=== PATIENT | male | born 1955 | race Caucasian/White ===

== ENCOUNTER 2020-01-09 11:33 | Outpatient (CLI) | payer MEDICARE, OTHER, SELFPAY ==
--- NOTE | ~2020-01-09 | XR_ITS ---
XR knee RT min 4V 01/09/2020 12:08 Indication: Right knee pain Procedure: 4 views right knee Comparison: 12/15/2011 Findings: There is mild patellofemoral compartment osteoarthritis. No fracture, subluxation or disloc ation. No significant joint effusion. No significant soft tissue abnormality. Impression: 1: Mild osteoarthritis of the patellofemoral joint. Reviewed, dictated and finalized at location A. Impression: 1: Mild osteoarthritis of the patellofemoral joint.
== END 2020-01-09 11:34 | disposition home or self-care (01) ==
LOC: CHSIMG 11:40
PROVIDERS: PCP Internal Medicine; Visit Provider Internal Medicine
DX: M25.561 Pain in right knee (principal)
CPT/HCPCS: 73564

== ENCOUNTER 2021-01-22 08:10 | Outpatient (CLI) | payer MEDICARE, OTHER, SELFPAY ==
--- NOTE | 2021-01-22 09:33 | ECG_ITS ---
Measurements Intervals [place] Rate: 62 P: 25 MD: 201 QRS: 56 QRSD: 100 T: 15 QT: 420 QTc: 427 Interpretive Statements SINUS RHYTHM BASELINE ARTIFACT- I, II, AVR, AVL, AVF NORMAL ECG Electronically Signed On 01-22-2021 9:59:54 CDT by Juan C Han D.O.
[2021-01-22 09:59] LABS: Basophils Absolute Auto 0.1 K/mm3 (0.0-0.1); Basophils Percent Auto 1.2 % (0.2-1.2); Eosinophils Absolute Auto 0.1 K/mm3 (0-0.3); Eosinophils Percent Auto 1.5 % (0-4.4); Hematocrit 44.9 % (42.0-52.0); Hemoglobin 15.1 g/dL (14.0-18.0); Immature Granulocyte Absolute 0.02 K/mm3 (0.00-0.031); Immature Granulocyte Percent A 0.3 % (0-0.5); Lymphocytes Absolute Auto 1.71 K/mm3 (0.9-3.2); Lymphocytes Percent Auto 28.9 % (18.3-44.2); Mean Corpuscular HGB Conc 33.6 g/dl (32-36); Mean Corpuscular Volume 89.3 fl (80-100); Mean Platelet Volume 9.3 fl (7.4-10.4); Monocytes Absolute Auto 0.5 K/mm3 (0.1-0.6); Monocytes Percent Auto 9.1 % (2.6-8.5); Neutrophils Absolute Auto 3.5 K/mm3 (1.3-6.7); Platelet Count Result 215 k/mm3 (150-375); Red Blood Count 5.03 M/mm3 (4.6-6.20); Red Cell Distribution Width 13.1 % (11.5-14.5); White Blood Count 5.9 K/mm3 (4.5-10.0)
[2021-01-22 10:07] LABS: Urine Cotinine NEGATIVE
[2021-01-22 10:10] LABS: Albumin Level 4.2 g/dL (3.5-5.1); Anion Gap 8 mmol/L (8-16); Blood Urea Nitrogen 18 mg/dL (9-20); Calcium 9.7 mg/dL (8.4-10.2); Carbon Dioxide 30 mmol/L (22-30); Chloride 104 mmol/L (98-107); Estimated Glomerular Filt Rate > 60; Glucose 105 mg/dL (75-110); Potassium 4.2 mmol/L (3.4-5.0); Sodium 142 mmol/L (137-145)
[2021-01-23 04:28] LABS: Hemoglobin A1C 5.6 % (<5.7)
== END 2021-01-22 08:11 | disposition home or self-care (01) ==
LOC: ANHSURGERY 08:13
PROVIDERS: PCP Internal Medicine; Visit Provider Orthopaedic Surgery
DX: Z01.818 Encounter for other preprocedural examination (principal); M17.11 Unilateral primary osteoarthritis, right knee; Z51.81 Encounter for therapeutic drug level monitoring; Z79.899 Other long term (current) drug therapy
CPT/HCPCS: 80048; 80307; 82040; 83036; 85025; 87070; 87077; 87186; 93005

== ENCOUNTER 2021-02-05 00:43 | Day surgery (SDC) | payer MEDICARE, OTHER, SELFPAY ==
[2021-01-22 08:19] VITALS: BMI 36.4
[2021-01-22 09:10] VITALS: BP 167/85; PULSE 71; RESP 16; TEMP 37; O2SAT 99
[2021-02-05] VITALS (17 sets, daily range): BP systolic 112–150; BP diastolic 59–80; PULSE 76–110; RESP 14–18; TEMP 35.9–37.1; O2SAT 94–100
--- NOTE | ~2021-02-05 | XR_ITS ---
EXAMINATION: XR knee RT 2V DATE: 02/05/2021 16:05 INDICATION: Right knee arthroplasty. Postop. TECHNIQUE: 2 views of right knee were obtained. COMPARISON: Right knee radiographs 01/09/2020 FINDINGS: There is a total right knee arthroplasty in near-anatomic alignment with patellar resurfaci ng. No fracture. There is gas in the knee joint and soft tissues, consistent with recent surgery. IMPRESSION: 1. Total right knee arthroplasty in near-anatomic alignment. Reviewed, dictated and finalized at location A.
--- NOTE | 2021-02-05 08:50 | PM.IMHP ---
H&P: HPI History of Present Illness Date/Time: 02/05/21 08:50 65-year-old male patient of who presents today for right total knee arthroplasty. He has been having pain in this knee for years. He has been on diclofenac which is giving him very little improvement of his symptoms. He has severe medial compartment as well as patellofemoral arthritis in his knee. He is miserable on a daily basis. Pain is affecting his daily lifestyle. He feels this point is very proceed with total knee arthroplasty rather continue nonsurgical treatment. <BETTE Farah - Last Filed: 02/05/21 08:54> Chief Complaint: right knee DJD <BETTE Farah - Last Filed: 02/05/21 08:54> Review of Systems Review of Systems: All systems reviewed & are unremarkable except as noted in HPI and below <BETTE Farah - Last Filed: 02/05/21 08:54> [facility] Past Medical History Medical History: Medical History (Updated 02/05/21 @ 11:47 by Richard Whitman MD) Hypertension <BETTE Farah - Last Filed: 02/05/21 08:54> Social History Social History: Social History Smoking packs per day: 3 Smoking cigarettes per day: 60.0 Years smoked: 20 Smoking pack-years: 60.00 Smoking status: Former smoker Tobacco type: cigarettes Smoking end date: 08/09/91 Additional smoking assessment comments: DENIES ANY FORM OF TOBACCO USE Living arrangements: with family Spiritual care concerns: No <BETTE Farah - Last Filed: 02/05/21 08:54> Meds Home Medications and Allergies Home medications: Home Medications Medication Instructions Recorded Confirmed Type acetaminophen [Tylenol Arthritis] 1,000 mg PO PRN PRN 01/22/21 01/22/21 History aspirin [Adult Low Dose Aspirin] 81 mg PO DAILY 01/22/21 02/05/21 History diclofenac sodium 75 mg PO BID 01/22/21 02/05/21 History garlic 2,000 mg PO DAILY 01/22/21 02/05/21 History losartan-hydrochlorothiazide 1.5 tablet PO QAM 01/22/21 02/05/21 History multivitamin,vg-wump-dbjysllr 1 tablet PO DAILY 01/22/21 01/22/21 History [Complete Multivitamin] omega-3 fatty acids [[place] 3 Fish 1,000 mg PO DAILY 01/22/21 02/05/21 History Oil] psyllium husk [Daily Fiber] 0.4 g PO DAILY 01/22/21 02/05/21 History tamsulosin 0.4 mg PO QAM 01/22/21 02/05/21 History <BETTE Farah - Last Filed: 02/05/21 08:54> Allergies/Adverse reactions: Allergies Allergy/AdvReac Type Severity Reaction Status Date / Time morphine AdvReac Unknown Nausea and Verified 02/05/21 11:03 Vomiting <BETTE Farah Last Filed: 02/05/21 08:54> Exam Narrative: Exam Narrative: 65-year-old male alert pleasant. He is 5 ft 7 to 123 lb. His BMI is 35. his right knee has moderate effusion. Range of motion is from 5-135 degrees. He has normal stability in the knee. Hip range of motion is full without discomfort. Negative Stinchfield maneuver. Normal quad strength. No edema in either lower extremity. 2+ dorsalis pedis and post tibial artery pulse in the right leg. Does state he has some slight numbness to light touch in the right lower extremity. <BETTE Farah - Last Filed: 02/05/21 08:54> Resp: Auscultation: clear to auscultation bilaterally <BETTE Farah Last Filed: 02/05/21 08:54> Cardio: Rate: regular rate <BETTE Farah Last Filed: 02/05/21 08:54> Rhythm: regular rhythm <BETTE Farah Last Filed: 02/05/21 08:54> Assessment and Plan Additional Plan 65-year-old male who has severe medial compartment arthritis and moderately severe patellofemoral arthritis in the right knee with significant symptoms. Again he is miserable on a daily basis and feels he is ready proceed with total knee arthroplasty. Surgical procedure as well as risks and complications were discussed in detail all questions were answered we will plan to proceed. He will see his primary care doctor pre-surgical
[2021-02-05] MEDS: LACTATED RINGERS 1,000 ML 30 ML IV CONT ×2 (10:30→15:54)
[2021-02-05] MEDS: TRANEXAMIC ACID 1,000MG/ISO100 1,000 MG/100 ML BAG 200 MG IVPB (10:44)
[2021-02-05] MEDS: ACETAMINOPHEN 500 MG TABLET 1000 MG PO ×3 (10:44→23:14)
--- NOTE | 2021-02-05 11:52 | P.PNAN_ITS ---
Anes - Initial Pre Proc Eval Procedure: Operation Date: 02/05/21 12:00 Proposed Procedures p Right Total Knee Arthroplasty - Dieter Harman MD Date/Time: 02/05/21 11:52 Surgeon: Dieter Harman MD Pre Op Diagnosis: severe oa, right knee Patient Data Age: 65 Gender: M Height: 1.68 m Weight: 99.1 kg Last Vital Signs Temp 98.8 F 02/05/21 11:00 Pulse 76 02/05/21 11:00 Resp 18 02/05/21 11:00 BP 150/80 H 02/05/21 11:00 Pulse Ox 98 02/05/21 11:00 Allergies Allergy/AdvReac Type Severity Reaction Status Date / Time morphine AdvReac Unknown Nausea and Verified 02/05/21 11:03 Vomiting Home Medications Medication Instructions Recorded Confirmed Type acetaminophen [Tylenol Arthritis] 1,000 mg PO PRN PRN 01/22/21 01/22/21 History aspirin [Adult Low Dose Aspirin] 81 mg PO DAILY 01/22/21 02/05/21 History diclofenac sodium 75 mg PO BID 01/22/21 02/05/21 History garlic 2,000 mg PO DAILY 01/22/21 02/05/21 History losartan-hydrochlorothiazide 1.5 tablet PO QAM 01/22/21 02/05/21 History multivitamin,[id number]-[id number] 1 tablet PO DAILY 01/22/21 01/22/21 History [Complete Multivitamin] omega-3 fatty acids [[place] 3 Fish 1,000 mg PO DAILY 01/22/21 02/05/21 History Oil] psyllium husk [Daily Fiber] 0.4 g PO DAILY 01/22/21 02/05/21 History tamsulosin 0.4 mg PO QAM 01/22/21 02/05/21 History Patient hx anesthesia problems: none Family hx anesthesia problems: none PMFSH Past Medical History Medical History (Updated 02/05/21 @ 11:47 by Richard Whitman MD) Hypertension Social History Social History Smoking packs per day: 3 Smoking cigarettes per day: 60.0 Years smoked: 20 Smoking pack-years: 60.00 Smoking status: Former smoker Tobacco type: cigarettes Smoking end date: 08/09/91 Additional smoking assessment comments: DENIES ANY FORM OF TOBACCO USE Living arrangements: with family Spiritual care concerns: No Anes - Eval Final PreProcedure Day of Procedure 02/05/21 11:52 Patient weight: obese Heart: regular rate and rhythm Airway: Mallampati scale Neurological: alert and oriented Last oral intake: >/= 8 hours ASA classification: III Emergent: no Anesthetic plan: proceed Anesthesia type and monitoring: general LMA and standard monitoring Informed Consent: The patient's anesthetic plan and its attendant risks and benefits were discussed with the patient/family/POA. Questions were solicited and answers provided to the satisfaction of the patient/family/POA.
--- NOTE | 2021-02-05 11:53 | WPDHPUPDATE1 ---
History and Physical Update Update Date/Time: 02/05/21 11:53 History and Physical has been reviewed, including an updated exam of the patient. There are NO changes in the patient's condition. Risks, benefits, and alternatives have been discussed and questions answered. Patient agrees to proceed with procedure.
[2021-02-05] MEDS: ceFAZolin 2 GM/D5W 50 ML 2 GM/50 ML BAG IVPB (12:07)
[2021-02-05] MEDS: ceFAZolin SODIUM 1 GM VIAL 3 GM IRRIGATION (12:46)
[2021-02-05] MEDS: ceFAZolin SODIUM 1 GM VIAL IV PUSH (14:37)
[2021-02-05] MEDS: TRANEXAMIC ACID 1,000 MG/10 ML AMPUL 1000 MG IV PUSH (14:40)
--- NOTE | 2021-02-05 15:41 | W.PM.PROC2 ---
Procedure Note - Detailed Date of Procedure 02/05/21 Pre-op Diagnosis severe oa, right knee Post-op Diagnosis same Procedure Performed Right total knee arthroplasty Surgeon Dieter Harman MD Return Checker Estevan Anesthesia general Indications arthritis severe, pain, failure of non operative treatment Findings same Description of Procedure patient brought to the operating room and general anesthesia was administered. He received weight based vancomycin 2 g of Ancef and 1 g of tranexamic acid IV preoperatively and the right knee prepped draped usual fashion. Limb was exsanguinated tourniquet elevated to 300 mmHg. A 7 in longitudinal midline incision was used in a vastus medialis splitting approach utilized. Infrapatellar and suprapatellar fat pads were excised the quadriceps synovectomy carried out. The patella was moderately arthritic at the the trochlea was is also. The patella was measured at 23.5 mm and was cut to 15 mm. Bone quality very good. Protector cap applied. Guide dwight was inserted on femoral canal after aspiration canal contents using the 5 degree valgus cutting bushing 9 mm of bone removed the distal femur. Next the tibial plateau was cut. We made a skim cut through the articular cartilage in both compartments. PCL was recessed meniscal remnants excised. Flexion gap was too tight to accept the 8 mm spacer block medially. Additional 2 mm of bone removed the tibial plateau at this time. After confirming alignment of the tibial cut flexion gaps were measured. The medial side measured 8 mm the lateral side measured 11mm . Whitesides line was drawn on the femur and 4? of external rotation matched Whitesides line appropriately. Posterior referencing pin holes were placed with the guide set at 4? external rotation. The 65 sizing block looked like he would notch a bit the 67.5 was applied and the femoral cuts made. The 67.5 was about a mm wider than the distal femur. We trialed and 10 mm CR insert was placed at 90? of flexion we found that it was too tight laterally in this position and there was about a mm and half to 2 mm of play medially. The knee had a fairly positive bounce. The tibia was sized to a 71 which fit line to line posterolaterally to anterior medially at the proper rotation referenced off the 2nd metatarsal ray and the medial 1/3 of the tibial tubercle in the anterior surface of the tibia. Bone quality again was excellent. We trialed again with the 10 insert and found that again there is a little bit of play medially but it was far too tight laterally. This demonstrated that the femur would benefit from being at slightly less external rotation. We applied the 65 mm vanguard cutting block after removing the pin that would go into the reference hole in the lateral femoral condyle and this allowed us to dial 2? of internal rotation into the femur approximately. Basically we internally rotated it such that it would remove about 1/2 mm more of the posterior aspect of the lateral femoral condyle. We used the threaded pin to stabilize the cutting block in this position. The cuts were then made downsizing to a 65 which fit better medial to lateral without overhang. We then trialed with the 10 insert and we had excellent balance than 90? but a little bit more anterior-posterior drawer that I would normally except. The knee came out to full extension. Negative bounce. We trialed with the 11 and in flexion this gave the appropriate stability with a mm each of medial and lateral opening at 90?. However the knee had a positive bounce test lacking couple of degrees of extension. Therefore additional 1 mm bone was removed the distal femur and the chamfer cuts revisited and on read trying with the 11 knee came out to full extension with no medial opening in full extension 1 mm at 5? of flexion and 2-3 mm of opening laterally. Excellent balance between the mediolateral compartments at 90? of flexion with gravity flexion all t
[2021-02-05] MEDS: HYDROmorphone HCL INJ (*CRX) 1 MG/ML SYR 0.25 MG IV PUSH ×8 (16:17→16:55)
[2021-02-05] MEDS: fentaNYL CITRATE INJ (*CRX) 100 MCG/2 ML VIAL 25 MCG IV PUSH ×4 (17:01→17:11)
[2021-02-05] MEDS: SODIUM CHLORIDE 0.9% IV 1,000 ML 125 ML IV CONT (17:52)
[2021-02-05] MEDS: SENNA/DOCUSATE SODIUM TABLET 2 TAB PO (17:59)
[2021-02-05] MEDS: oxyCODONE HCL (*CRX) 5 MG TAB IR PO (21:46)
[2021-02-06 03:07] VITALS: BP 131/70; PULSE 84; RESP 16; TEMP 36.8; O2SAT 98
[2021-02-06] MEDS: oxyCODONE HCL (*CRX) 5 MG TAB IR PO ×3 (03:27→13:37)
[2021-02-06] MEDS: ACETAMINOPHEN 500 MG TABLET 1000 MG PO ×2 (05:47→11:42)
[2021-02-06 05:51] LABS: Basophils Percent Auto 0.1 % (0.2-1.2); Hematocrit 35.3 % (42.0-52.0); Hemoglobin 11.8 g/dL (14.0-18.0); Immature Granulocyte Absolute 0.06 K/mm3 (0.00-0.031); Immature Granulocyte Percent A 0.5 % (0-0.5); Lymphocytes Absolute Auto 0.69 K/mm3 (0.9-3.2); Lymphocytes Percent Auto 5.3 % (18.3-44.2); Mean Corpuscular HGB Conc 33.4 g/dl (32-36); Mean Corpuscular Hemoglobin 29.8 pg (26-34); Mean Corpuscular Volume 89.1 fl (80-100); Mean Platelet Volume 9.4 fl (7.4-10.4); Monocytes Absolute Auto 0.9 K/mm3 (0.1-0.6); Monocytes Percent Auto 6.8 % (2.6-8.5); Neutrophils Absolute Auto 11.5 K/mm3 (1.3-6.7); Neutrophils Percent Auto 87.3 % (45.5-73.1); Platelet Count Result 218 k/mm3 (150-375); Red Blood Count 3.96 M/mm3 (4.6-6.20); Red Cell Distribution Width 13.2 % (11.5-14.5); White Blood Count 13.1 K/mm3 (4.5-10.0)
[2021-02-06 06:01] LABS: Anion Gap 5 mmol/L (8-16); Blood Urea Nitrogen 14 mg/dL (9-20); Calcium 8.4 mg/dL (8.4-10.2); Carbon Dioxide 26 mmol/L (22-30); Chloride 107 mmol/L (98-107); Estimated CRCL calculation 86 ml/min; Estimated Glomerular Filt Rate > 60; Glucose 133 mg/dL (75-110); Potassium 4.1 mmol/L (3.4-5.0); Sodium 138 mmol/L (137-145)
--- NOTE | 2021-02-06 07:08 | PM.PNORT ---
Progress Note: A&P Additional Plan POD 1 alert pain is well controlled, pt has been up to restroom overnight, mild swelling in knee, NVI. labs-noted, plan to have pt work with PT today then plan to send home this afternoon Subjective Subjective Date/Time Seen: 02/06/21 07:08 Objective Data Vital Signs Vital Signs: Vital Signs - 24 hr 02/05/21 11:00 02/05/21 15:54 02/05/21 15:58 Temperature 37.1 C 36.2 C L Pulse Rate 76 110 H 90 Respiratory Rate 18 18 16 Blood Pressure 150/80 H 144/74 H 112/65 Pulse Oximetry 98 96 94 02/05/21 16:10 02/05/21 16:25 02/05/21 16:30 Temperature Pulse Rate 94 93 89 Respiratory Rate 18 18 16 Blood Pressure 123/59 L 136/77 133/75 Pulse Oximetry 96 98 99 02/05/21 16:45 02/05/21 16:55 02/05/21 17:00 Temperature Pulse Rate 88 92 89 Respiratory Rate 16 14 14 Blood Pressure 140/70 131/77 139/73 Pulse Oximetry 100 100 100 02/05/21 17:15 02/05/21 17:30 02/05/21 17:45 Temperature 36.3 C L 36.3 C L Pulse Rate 83 80 76 Respiratory Rate 14 14 14 Blood Pressure 140/74 124/74 130/72 Pulse Oximetry 100 100 100 02/05/21 18:15 02/05/21 18:18 02/05/21 19:07 Temperature 36.3 C L 35.9 C L Pulse Rate 79 82 Respiratory Rate 14 16 Blood Pressure 122/72 117/68 Pulse Oximetry 100 100 100 02/05/21 20:00 02/05/21 23:07 02/06/21 03:07 Temperature 36.2 C L 36.8 C Pulse Rate 79 83 84 Respiratory Rate 14 18 16 Blood Pressure 132/71 131/70 Pulse Oximetry 100 100 98 Intake/Output Intake/Output: Intake & Output 02/03/21 02/04/21 02/05/21 02/06/21 23:59 23:59 23:59 23:59 Intake Total 950 450 Output Total 200 Balance 950 250 Meds/Results Medications: Active Medications Generic Name Dose Route Start Last Admin Trade Name Freq PRN Reason Stop Dose Admin Acetaminophen 1,000 mg 02/05/21 18:00 02/06/21 05:47 Acetaminophen 500 Mg Tablet PO 1,000 mg Q6H VINOD Administration Apixaban 2.5 mg 02/06/21 09:00 Apixaban 2.5 Mg Tablet PO 02/18/21 09:01 Q12HR VINOD Celecoxib 200 mg 02/06/21 08:00 Celecoxib 200 Mg Capsule PO DAILY@0800 [facility] Cephalexin HCl 500 mg 02/06/21 18:00 Cephalexin 500 Mg Capsule PO 02/19/21 18:01 Q6HR VINOD Hydromorphone HCl 0.5 mg 02/05/21 17:22 Hydromorphone Hcl Inj (*Crx) 1 Mg/Ml Syr IV PUSH Q3H PRN Pain Rated 7-10 Cefazolin Sodium 1 gm in 50 mls @ 100 mls/hr 02/05/21 21:00 02/06/21 05:44 Ancef 1 Gm/D5w 50 Ml Pm IVPB 02/06/21 13:29 Infused Q8H [facility] Infusion Multivitamins/Calcium 1 tablet 02/06/21 09:00 Therapeutic Multivitamins/Minerals Tab (*Bkc) PO DAILY [facility] Naloxone HCl 0.1 mg 02/05/21 17:22 Naloxone Hcl 0.4 Mg/Ml Vial IV PUSH Q2M PRN Opiate Reversal Oxycodone HCl 5 mg 02/05/21 17:22 02/06/21 05:19 Oxycodone Hcl (*Crx) 5 Mg Tab Ir PO Not Given Q4H [facility] Oxycodone HCl 5 mg 02/05/21 17:22 02/06/21 03:27 Oxycodone Hcl (*Crx) 5 Mg Tab Ir PO 5 mg Q4H PRN Administration Pain Rated 7-10 Polyethylene Glycol 17 gm 02/06/21 09:00 Polyethylene Glycol 3350 17 Gm Powd.Pack PO QAM [facility] Senna/Docusate Sodium 2 tab 02/05/21 17:22 02/05/21 17:59 Senna/Docusate Sodium Tablet PO 2 tab BID [facility] Administration Tamsulosin HCl 0.4 mg 02/06/21 09:00 Tamsulosin Hcl 0.4 Mg Capsule PO QAM [facility] Radiology Results: ITS Impressions Knee X-Ray 02/05/21 16:10 IMPRESSION: 1. Total right knee arthroplasty in near-anatomic alignment. Labs Labs: Laboratory Results - last 24 hr 02/05/21 02/06/21 02/06/21 10:30 05:11 05:11 WBC 13.1 H RBC 3.96 L Hgb 11.8 L D Hct 35.3 L MCV 89.1 MCH 29.8 MCHC 33.4 RDW 13.2 Plt Count 218 MPV 9.4 Immature Gran % (Auto) 0.5 Neut % (Auto) 87.3 H Lymph % (Auto) 5.3 L [place] % (Auto) 6.8 Eos % (Auto) 0.0 Baso % (Auto) 0.1 L Lymph # (Auto) 0.69 L [place] # (Auto) 0.9 H Eos # (Auto) 0.0 Baso # (Auto) 0.0
--- NOTE | 2021-02-06 07:14 | PM.DS ---
DS: Admitting Diagnosis Admitting Diagnosis Admitting Diagnosis: right knee DJD DS: Summary Hospital Course Hospital Course: stable Time Spent with Patient Time attestation: Total time spent providing and/or coordinating discharge services:65-year-old male who underwent right total knee arthroplasty 02/05/2021. Underwent procedure and complications. Postop he has been afebrile and vital signs have been stable. His wound is dry. He has a Mepilex dressing over his right knee. He is weight-bearing as tolerated. He is on Eliquis for 2 weeks followed by baby aspirin twice a day for DVT prophylaxis. Pain is well controlled on Celebrex once a day as well as schedule Tylenol and oxycodone 5 mg. He is on extended oral antibiotics postoperatively, he has a history of oxacillin sensitive Staph aureus on his nasal swab. Patient will work with therapy on postop day 1, if he is stable and remains doing well will plan on sending him home later today on 02/06/2021. Patient was advised to keep leg elevated at home but does exercise on a regular basis. He has outpatient therapy starting next Wednesday. Patient will also go home on Senokot and MiraLax for constipation. He will go on a regular diet. patient was advised to limit his activities is for standing and sitting in chairs as this will cause swelling in the knee. He has any questions or concerns he is to call the office. Overall patient has been stable and done very well. DS: Data Data Completed and Pending Labs on day of discharge: Labs from last 24 hours 02/06/21 02/06/21 02/05/21 05:11 05:11 10:30 WBC 13.1 H RBC 3.96 L Hgb 11.8 L D Hct 35.3 L MCV 89.1 MCH 29.8 MCHC 33.4 RDW 13.2 Plt Count 218 MPV 9.4 Immature Gran % (Auto) 0.5 Neut % (Auto) 87.3 H Lymph % (Auto) 5.3 L [place] % (Auto) 6.8 Eos % (Auto) 0.0 Baso % (Auto) 0.1 L Lymph # (Auto) 0.69 L [place] # (Auto) 0.9 H Eos # (Auto) 0.0 Baso # (Auto) 0.0 Abs Immat Gran (auto) 0.06 H Absolute Neuts (auto) 11.5 H Absolute Nucleated RBC 0.0 Nucleated RBC % 0.0 Sodium 138 Potassium 4.1 Chloride 107 Carbon Dioxide 26 Anion Gap 5 L BUN 14 Creatinine 0.80 Estim Creat Clear Calc 86 Estimated GFR > 60 Glucose 133 H Calcium 8.4 Blood Type A Positive Antibody Screen Negative Discharge Plan Discharge Patient Disposition: Home, Self-Care Discharge Instructions: DIETER HARMAN M.D [facility], [place] [id number] [place] [id number] POST-OPERATIVE DISCHARGE INSTRUCTIONS TOTAL KNEE ARTHROPLASTY 1. When resting, lie on back with leg elevated above hear to minimize swelling. Significant swelling could indicate a blood clot and if this occurs call the office (or go to the ER) to have a venous ultrasound. 2. Do exercise 5 times a day. 3. Do not sit with leg down except for meals. 4. Wound Care: Nursing will give additional dressings at discharge. Patient to change dressing at home 1 week from surgery, then maintain until seen in office. 5. May shower with dressing in place. 6. Follow weight bearing status instructions. Stand Alone Forms: General Discharge Instructions Follow-up/Referrals: Dieter Harman MD [Physician] - Keep Reg. Scheduled Appt. Discharge Medications: New acetaminophen 500 mg Tablet 1,000 mg PO Q6H Qty: 90 RF: 0 Eliquis 2.5 mg Tablet 2.5 mg PO Q12HR Qty: 27 RF: 0 celecoxib [Celebrex] 200 mg Capsule 200 mg PO DAILY@0800 Qty: 60 RF: 0 sennosides-docusate sodium [Senokot-S] 8.6-50 mg Tablet 2 tab-cap PO BID Qty: 60 RF: 0 cephalexin 500 mg Capsule 500 mg PO Q6HR Qty: 48 RF: 0 polyethylene glycol 3350 [Miralax] 17 gram Powder In Packet 17 g PO QAM Qty: 30 RF: 0 oxycodone 5 mg Tablet 5 mg PO Q4H Qty: 50 RF: 0 Continued tamsulosin 0.4 mg capsule 0.4 mg PO QAM RF: 0 maulik
--- NOTE | 2021-02-06 07:41 | PM.IMHP ---
H&P: HPI History of Present Illness Date/Time: 02/06/21 07:41 Bandar was sitting on the side of his bed when I went to examine him. He is feeling well, eating well today and tolerating oral fluids. No nausea or vomiting. Bowel sounds were active. He denies chest pain or shortness of breath. He is controlling his post surgical knee pain well with his p.r.n. medications He was able to scoot himself back into bed, and we assisted him with elevating his leg by multiple pillows and turning on his left side. Will follow Dr. Harman recommendations and discharge when Dr. Harman recommends. His vital signs have been stable, he is now off oxygen and on room air. Last glucose was 133, no fevers, WBC 13.1 Chief Complaint: right knee pain right knee severe OA Review of Systems Review of Systems: All systems reviewed & are unremarkable except as noted in HPI and below Constitutional: Constitutional: Reports as per HPI, Denies excessive sweating, Denies headache(s), Denies increased appetite, Denies snoring and Denies weight gain Eyes: Eyes: Reports as per HPI, Denies exophthalmos, Denies diplopia, Denies floaters and Denies loss of peripheral vision ENT: Reports as per HPI, Denies facial pain, Denies headache(s), Denies odynophagia and Denies tinnitus Cardiovascular: Cardiovascular: Reports as per HPI, Denies chest pain, Denies chest pain at rest and Denies chest pain with activity Respiratory: Respiratory: Reports as per HPI, Denies chest congestion, Denies cough, Denies hemoptysis, Denies dyspnea, Denies dyspnea on exertion and Denies snoring Gastrointestinal: Gastrointestinal: Reports as per HPI, Denies abdominal pain, Denies melena, Denies constipation and Denies odynophagia Genitourinary: Genitourinary: Reports as per HPI Musculoskeletal: Musculoskeletal: Reports as per HPI, Reports abnormal gait, Reports arthralgias ( Due to recent surgery), Reports joint swelling ( due to recent surgery), Reports limited range of motion ( due to surgical dressing) and Reports muscle weakness ( to affected surgical leg) Integumentary/Breasts: Skin/Breast: Reports as per HPI Neurologic: Reports as per HPI, Reports abnormal gait ( status post knee arthroplasty) and Denies headache(s) Psychiatric: Psychiatric: Reports as per HPI Endocrine: Endocrine: Reports as per HPI and Denies excessive sweating Hematologic/Lymphatic: Hematologic/Lymphatic: Reports as per HPI Allergic/Immunologic: Allergic/Immunologic: Reports as per HPI [facility] Past Medical History Medical History (Updated 02/06/21 @ 12:24 by Dominga Salmeron NP) Hypertension Family History Family History Father Heart disease CABG history then CVA, at 79 Mother COPD (chronic obstructive pulmonary disease) emphysema COPD Social History Social History Smoking packs per day: 3 Smoking cigarettes per day: 60.0 Years smoked: 20 Smoking pack-years: 60.00 Smoking status: Former smoker Tobacco type: cigarettes Smoking end date: 08/09/89 Additional smoking assessment comments: DENIES ANY FORM OF TOBACCO USE Alcohol intake: never Substance use: never Living arrangements: with family Gender identity (if verbalized by the patient): Male Spiritual care concerns: No Meds Home Medications and Allergies Home Medications Medication Instructions Recorded Confirmed Type garlic 2,000 mg PO DAILY 01/22/21 02/05/21 History losartan-hydrochlorothiazide 1.5 tablet PO QAM 01/22/21 02/05/21 History multivitamin,bm-dprn-cluorbfc 1 tablet PO DAILY 01/22/21 01/22/21 History omega-3 fatty acids 1,000 mg PO DAILY 01/22/21 02/05/21 History psyllium husk [Daily Fiber] 0.4 g PO DAILY 01/22/21 02/05/21 History tamsulosin 0.4 mg PO QAM 01/22/21 02/05/21 History acetaminophen 1,000 mg PO Q6H #90 tablet 02/06/21 Rx apixaban [Eliquis] 2.5 mg PO Q12HR #
[2021-02-06 08:00] VITALS: BP 130/64; PULSE 71; RESP 14; TEMP 36.6; O2SAT 98
--- NOTE | 2021-02-06 08:05 | WPDANESPN ---
Anes - Prog Note Post-Op Date/Time: 02/06/21 08:05 Cardiovascular status: normal Respiratory status: normal Airway patency: baseline Mental status: baseline Post-Op hydration status: normal Vital Signs: Last Vital Signs Temp 36.8 C 02/06/21 03:07 Pulse 84 02/06/21 03:07 Resp 16 02/06/21 03:07 BP 131/70 02/06/21 03:07 Pulse Ox 98 02/06/21 03:07 Pain Score (VAS): 0/10 I/O: Intake & Output 02/05/21 02/06/21 02/06/21 23:59 07:59 15:59 Intake Total 900 450 Output Total 750 Balance 900 -300 Laboratory Tests 02/06/21 05:11 02/06/21 05:11 02/05/21 02/06/21 02/06/21 10:30 05:11 05:11 WBC 13.1 H RBC 3.96 L Hgb 11.8 L D Hct 35.3 L MCV 89.1 MCH 29.8 MCHC 33.4 RDW 13.2 Plt Count 218 MPV 9.4 Immature Gran % (Auto) 0.5 Neut % (Auto) 87.3 H Lymph % (Auto) 5.3 L Craig % (Auto) 6.8 Eos % (Auto) 0.0 Baso % (Auto) 0.1 L Lymph # (Auto) 0.69 L Craig # (Auto) 0.9 H Eos # (Auto) 0.0 Baso # (Auto) 0.0 Abs Immat Gran (auto) 0.06 H Absolute Neuts (auto) 11.5 H Absolute Nucleated RBC 0.0 Nucleated RBC % 0.0 Sodium 138 Potassium 4.1 Chloride 107 Carbon Dioxide 26 Anion Gap 5 L BUN 14 Creatinine 0.80 Estim Creat Clear Calc 86 Estimated GFR > 60 Glucose 133 H Calcium 8.4 Blood Type A Positive Antibody Screen Negative Post-procedural complaints: none Patient Feedback: Patient satisfied with anesthetic care.
[2021-02-06 08:24] VITALS: O2SAT 97
[2021-02-06] MEDS: APIXABAN 2.5 MG TABLET PO (09:27)
[2021-02-06] MEDS: SENNA/DOCUSATE SODIUM TABLET 2 TAB PO (09:27)
[2021-02-06] MEDS: CELECOXIB 200 MG CAPSULE PO (09:27)
[2021-02-06] MEDS: THERAPEUTIC MULTIVITAMINS/MINERALS TAB (*BKC) 1 TABLET PO (09:28)
[2021-02-06] MEDS: TAMSULOSIN HCL 0.4 MG CAPSULE PO (09:28)
[2021-02-06] MEDS: polyethylene glycoL 3350 17 GM POWD.PACK PO (09:29)
[2021-02-06 12:00] VITALS: BP 128/55; PULSE 74; RESP 16; TEMP 36.9; O2SAT 99
== END 2021-02-06 15:15 | disposition home or self-care (01) ==
LOC: ANHSURGERY 10:03 → ANH2MED 17:24
PROVIDERS: PCP Internal Medicine; Visit Provider Orthopaedic Surgery
PROC: (CPT 27447; principal; 2021-02-05 12:00)
DX: M17.11 Unilateral primary osteoarthritis, right knee (principal); I10 Essential (primary) hypertension; Z79.82 Long term (current) use of aspirin; Z87.891 Personal history of nicotine dependence; E66.9 Obesity, unspecified; Z68.35 Body mass index [BMI] 35.0-35.9, adult
CPT/HCPCS: 27447; 36415; 73560; 80048; 85025; 86850; 86900; 86901; 97110; 97116; 97161; 97165; A9270; C1713; C1776; J0171; J0690; J1170; J1885; J2250; J2795; J3010; J3370; J7030; J7120

== ENCOUNTER 2021-05-06 14:38 | Outpatient (CLI) | payer MEDICARE, OTHER, SELFPAY ==
--- NOTE | ~2021-05-06 | XR_ITS ---
EXAMINATION: XR lumbar spine 2-3V DATE: 05/06/2021 15:12 INDICATION: Chronic low back pain with radiculopathy TECHNIQUE: Anteroposterior and lateral views of the lumbar spine, and cone-down lateral view of the l umbosacral junction were obtained. COMPARISON: 08/20/2016 FINDINGS: There is lumbar dextrocurvature. There are 2 mm of stable retrolisthesis of L1 on L2. There is chronic anterior wedging of T11 and L1. No acute fracture is identified. There is unchanged moder ate loss of intervertebral disc space height at L1-2, L4-5, and L5-S1. Degenerative osteophytes proje ct from the anterior endplates of multiple vertebral bodies. IMPRESSION: 1. Moderate lumbar spondylosis without acute findings or significant interval change. Reviewed, dictated and finalized at location A.
== END 2021-05-06 14:39 | disposition home or self-care (01) ==
LOC: CHSIMG 14:41
PROVIDERS: PCP Internal Medicine; Visit Provider Internal Medicine
DX: M54.5 Low back pain (principal)
CPT/HCPCS: 72100

== ENCOUNTER 2021-05-07 08:16 | Outpatient (CLI) | payer MEDICARE, OTHER, SELFPAY ==
--- NOTE | ~2021-05-07 | MR_ITS ---
EXAMINATION: MR lumbar spine wo con DATE: 05/07/2021 10:48 INDICATION: Chronic low back pain and radiculopathy. TECHNIQUE: Magnetic resonance imaging (MRI) of the lumbar spine was performed without intravenous con trast. Sequences included sagittal T2-weighted FSE, sagittal T2-weighted FS FSE, sagittal T1-weighted FSE, and axial T2-weighted FSE. COMPARISON: None FINDINGS: Transitional thoracolumbar and lumbosacral segments. For purposes of this report the thoracolumbar se gment with bilateral hypoplastic riblets will be designated L1 and the lumbosacral segment which is p artially lumbarized on the right will be designated S1 with 4 intervening nonrib-bearing lumbar segme nts, L2-L5. Approximately 10 degree lumbar dextrocurvature between L3 and L5. 2 mm retrolisthesis L3 on L4. Vertebral body heights are normal. Normal marrow signal aside from mild fibrovascular and fib rofatty degenerative endplate changes at a few levels in the lumbar spine. Moderate right-sided predo minant disc height loss at L3-L4 and L4-L5. Moderate right-sided predominant disc height loss at L2-L 3. Mild disc height loss at L1-L2 and L5-S1. The conus medullaris terminates at L1-L2. There is jason l signal in the caudal spinal cord. Paravertebral soft tissues are unremarkable. The following disc l evels are specifically discussed: L1-L2: Disc is bulging with superimposed annular fissure and right paracentral to right foraminal zon e disc extrusion with disc material extending up to 4 mm caudal to the level of the superior endplate of L2. There is old right and minimal left facet joint osteoarthritis. There is mild right and minim al left neural foraminal stenosis. There is mild central canal stenosis. L2-L3: Mild base disc extrusion extending from foraminal zone to foraminal zone with disc material ex tending up to 3 mm caudal to the level of the superior endplate of L3. There is mild bilateral facet joint osteoarthritis. There is moderate right and mild to moderate left neural foraminal stenosis. Th ere is mild central canal stenosis. L3-L4: Disc is bulging. There is severe bilateral facet joint osteoarthritis. There is mild to modera te right and moderate left neural foraminal stenosis. There is mild central canal stenosis. L4-L5: Disc is bulging. There is moderate left and mild to moderate right facet joint osteoarthritis. There is moderate left and mild to moderate right neural foraminal stenosis. There is mild central c anal stenosis. L5-S1: Disc is bulging with superimposed right foraminal zone annular fissure and small disc extrusio n. There is moderate left and moderate to severe right facet joint osteoarthritis. There is moderate bilateral, right greater than left neural foraminal stenosis. There is mild central canal stenosis. S1-S2: Disc is bulging. There is mild bilateral facet joint osteoarthritis, right greater than left. There is mild right neural foraminal stenosis. There is no central canal stenosis. IMPRESSION: 1. Mild lumbar dextrocurvature with moderate spondylosis. 2. Transitional thoracolumbar and lumbosacral segments. Reviewed, dictated and finalized at location A.
== END 2021-05-07 08:17 | disposition home or self-care (01) ==
LOC: CHSIMG 08:18
PROVIDERS: PCP Internal Medicine; Visit Provider Internal Medicine
DX: M54.5 Low back pain (principal)
CPT/HCPCS: 72148

== ENCOUNTER 2022-10-05 09:54 | Outpatient (CLI) | payer MEDICARE, OTHER, SELFPAY ==
--- NOTE | 2022-10-05 10:52 | ECG_ITS ---
Measurements Intervals [place] Rate: 71 P: 46 MI: 168 QRS: 70 QRSD: 110 T: 38 QT: 390 QTc: 426 Interpretive Statements SINUS RHYTHM NORMAL ECG COMPARED TO ECG 01/22/2021 09:45:59 NO SIGNIFICANT CHANGES Electronically Signed On 10-05-2022 14:38:34 TITLE I ASSISTANT by Jaime [place] M.D.
[2022-10-05 11:23] LABS: Basophils Absolute Auto 0.1 K/mm3 (0.0-0.1); Basophils Percent Auto 1.2 % (0.2-1.2); Eosinophils Absolute Auto 0.1 K/mm3 (0-0.3); Hemoglobin 15.3 g/dL (14.0-18.0); Immature Granulocyte Absolute 0.01 K/mm3 (0.00-0.031); Immature Granulocyte Percent A 0.2 % (0-0.5); Lymphocytes Absolute Auto 1.74 K/mm3 (0.9-3.2); Lymphocytes Percent Auto 29.9 % (18.3-44.2); Mean Corpuscular Hemoglobin 30.7 pg (26-34); Mean Corpuscular Volume 90.2 fl (80-100); Mean Platelet Volume 9.3 fl (7.4-10.4); Monocytes Absolute Auto 0.6 K/mm3 (0.1-0.6); Monocytes Percent Auto 9.6 % (2.6-8.5); Neutrophils Absolute Auto 3.4 K/mm3 (1.3-6.7); Neutrophils Percent Auto 58.1 % (45.5-73.1); Platelet Count Result 231 k/mm3 (150-375); Red Blood Count 4.99 M/mm3 (4.6-6.20); Red Cell Distribution Width 13.2 % (11.5-14.5); White Blood Count 5.8 K/mm3 (4.5-10.0)
[2022-10-05 11:36] LABS: Albumin Level 4.4 g/dL (3.5-5.1); Anion Gap 4 mmol/L (8-16); Blood Urea Nitrogen 17 mg/dL (9-20); Calcium 9.4 mg/dL (8.4-10.2); Carbon Dioxide 32 mmol/L (22-30); Chloride 98 mmol/L (98-107); Estimated Glomerular Filt Rate > 60; Glucose 96 mg/dL (65-110); Potassium 4.2 mmol/L (3.4-5.0); Sodium 134 mmol/L (137-145); Urine Cotinine NEGATIVE
[2022-10-05 22:23] LABS: Hemoglobin A1C 5.4 % (<5.7)
== END 2022-10-05 09:55 | disposition home or self-care (01) ==
PROVIDERS: PCP Internal Medicine; Visit Provider Orthopaedic Surgery
DX: Z01.812 Encounter for preprocedural laboratory examination (principal); Z01.810 Encounter for preprocedural cardiovascular examination; M17.12 Unilateral primary osteoarthritis, left knee
CPT/HCPCS: 80048; 80307; 82040; 83036; 85025; 87081; 93005

== ENCOUNTER 2022-10-21 00:50 | Day surgery (SDC) | payer MEDICARE, OTHER, SELFPAY ==
[2022-10-05 10:05] VITALS: BMI 34.9
--- NOTE | 2022-10-05 10:33 | PC.NURSE ---
Report to the Outpatient Waiting Room, entrance under the green pavilion located off [facility], at time ___1000____ on date __10/21/22 . Planned Procedure Time: _1200 . Time changes happen often and if your time is changed the preop area will call you the afternoon before. - You and your visitor will be asked to self-screen and do not enter if you have any COVID symptoms. - Only one visitor is requested with a max of two and NO children visitors are allowed at this time. - The patient visitor may be requested to leave or wait in car when not with patient due to distancing restrictions. - A mask is optional within the hospital at this time. Patients may have clear liquids (water, carbonated beverages, clear teas, apple juice) until 3 hours prior to surgery with a maximum of 20 ounces. - No food from midnight until time of surgery - Infants may have breast milk until 4 hours before surgery, formula 6 hours prior to surgery. - Children will be allowed to drink immediately following surgery. If applicable, please bring a bottle or sippy cup to assist with drinking. Juice, water, soda, and popsicles are readily available. For infants on formula, please bring formula the day of surgery. Pacifiers are allowed. Take the following medications with a SIP of water the morning of surgery: ___NONE DO NOT STOP ANY OF YOUR OTHER PRESCRIPTION MEDICATIONS PRIOR TO SURGERY ?EXCEPT THE FOLLOWING Medications to discontinue per physician ___DICLOFENAC 7 DAYS PRE OP PER DR MICHELLE. LAST DOSE 10/13/22 . ALL VITAMINS/SUPPLEMENTS 3 DAYS PRE OP.LAST DOSE 10/17/22 Please no make-up, nail chinese, hairspray, perfume, deodorant, or body powder the day of surgery. No jewelry (including any body piercings) or valuables the day of surgery, leave them at home. Please take a shower or bath the night before, or the morning of, surgery with an antibacterial soap. Wear comfortable, loose fitting clothing. Children are encouraged to wear pajamas. - Jewelry must be removed prior to entering the operating room. Rings and piercings that are not removed may be cut off. - The hospital will not accept responsibility for valuables. - Please leave all valuables, including medications, at home the day of surgery. If you are going home after surgery, a licensed team otr truck driver must drive you home. - NO public transportation without another adult if you receive anesthesia. - We recommend that an adult stay with you for 24 hours following discharge. - We also recommend that you do not drive, make important decision, drink alcoholic beverages, or take any drugs that were not prescribed by your health care provider for at least 24 hours after your discharge time. Follow any additional instructions given to you from your surgeon. If you or anyone in your household have experienced Covid symptoms in the past week, please notify your surgeon or the nurse liaison at the phone number below for possible testing. VERBAL AND WRITTEN instructions given to ___PATIENT and asked if any additional questions and then verbalized understanding. Patient advised to call surgeon office or pre surgery nurse liaison [phone] if any additional questions.
[2022-10-05 10:53] VITALS: BP 162/88; PULSE 75; RESP 18; TEMP 37; O2SAT 99
[2022-10-21] VITALS (16 sets, daily range): BP systolic 101–172; BP diastolic 55–93; PULSE 63–98; RESP 11–18; TEMP 36.1–36.9; O2SAT 96–100
--- NOTE | ~2022-10-21 | XR_ITS ---
EXAMINATION: [id number]_[id number]_CR DATE: 10/21/2022 15:58 INDICATION: Total left knee arthroplasty. Postop. TECHNIQUE: 2 views of left knee were obtained. COMPARISON: None. FINDINGS: There is a total left knee arthroplasty with patellar resurfacing in near-anatomic alignmen t. No fracture. There is gas in the knee joint and soft tissues, consistent with recent surgery. IMPRESSION: 1. Total left knee arthroplasty in near-anatomic alignment. Reviewed, dictated and finalized at location A.
--- NOTE | 2022-10-21 07:44 | PM.IMHP ---
H&P: HPI History of Present Illness Date/Time: 10/21/22 07:44 Chief Complaint: Left knee DJD Narrative: 67-year-old male patient Dr. Marmolejo who presents today for a left total knee arthroplasty. He underwent right total knee arthroplasty in January of 2021 and is very happy with his results. He has moderately severe medial compartment osteoarthritis in the left knee. He has symptoms on a daily basis that is affecting his daily life. He has been on anti-inflammatories for a long time. He has had cortisone injections in the past none within the last 4 months. Patient feels this point he is having symptoms on a daily basis and is ready proceed with total knee arthroplasty on the left. Review of Systems Review of Systems: All systems reviewed & are unremarkable except as noted in HPI and below PMFSH Past Medical History Medical History (Updated 10/21/22 @ 10:31 by Hieu Trivedi MD) Hypertension Obesity Surgical History Surgical History (Updated 10/21/22 @ 10:31 by Hieu Trivedi MD) History of total knee arthroplasty Family History Family History Father Heart disease CABG history then CVA, at 79 Mother COPD (chronic obstructive pulmonary disease) emphysema COPD Social History Social History Smoking packs per day: 3 Smoking cigarettes per day: 60.0 Years smoked: 25 Smoking pack-years: 75.00 Smoking status: Former smoker Tobacco type: cigarettes Smoking end date: 08/09/89 Additional smoking assessment comments: DENIES ANY FORM OF TOBACCO USE Alcohol intake: never Substance use: never Living arrangements: with family Gender identity (if verbalized by the patient): Male Spiritual care concerns: No Meds Home Medications and Allergies Home Medications Medication Instructions Recorded Confirmed Type garlic 2,000 mg capsule 2,000 mg PO DAILY 01/22/21 10/21/22 History multivitamin,vf-[id number] 1 tablet PO DAILY 01/22/21 10/21/22 History omega-3 fatty acids 1,000 mg PO DAILY 01/22/21 10/21/22 History psyllium husk 0.4 gram capsule 0.4 g PO DAILY 01/22/21 10/21/22 History (Daily Fiber) tamsulosin 0.4 mg capsule 0.4 mg PO QAM 01/22/21 10/21/22 History diclofenac sodium 75 mg 75 mg PO BID 10/05/22 10/21/22 History tablet,delayed release losartan 100 1 tablet PO DAILY 10/05/22 10/21/22 History mg-hydrochlorothiazide 12.5 mg tablet oxycodone-acetaminophen 10 mg-325 0.5 tablet PO PRN PRN Pain 10/05/22 10/05/22 History mg tablet Allergies Allergy/AdvReac Type Severity Reaction Status Date / Time morphine AdvReac Unknown Nausea and Verified 10/21/22 10:27 Vomiting Exam Narrative: 67-year-old male alert pleasant. He is 5 ft 6 in 206 lb. His left knee has a moderately large effusion. Range of motion is from 5-135 degrees. Hip has full range motion without discomfort. Negative Stinchfield maneuver. Normal quad strength. 2+ dorsalis pedis and posterior artery pulse palpable. Does have some tingling in the toes which is longstanding. No edema in lower extremities. Resp: Auscultation: clear to auscultation bilaterally Cardio: Rate: regular rate Rhythm: regular rhythm Assessment and Plan Assessment and plan (1) Left knee DJD: Code(s): M17.12 - Unilateral primary osteoarthritis, left knee Status: Acute Plan 67-year-old male who has severe medial compartment and patellofemoral osteoarthritis left knee with continued symptoms. Again he is very happy with his results from his right total knee and is ready proceed with a left. Surgical procedure as well as risks and complications were discussed in detail all questions were answered we will proceed. Patient will avoid is diclofenac and any other aspirin ibuprofen products 1 prior to surgery. He will see his primary care doctor for pre-surgical cl
--- NOTE | 2022-10-21 10:31 | WPDANESEPPF ---
Anes - Initial Pre Proc Eval Procedure: Operation Date: 10/21/22 12:00 Proposed Procedures p Left Total Knee Arthroplasty - Dieter Harman MD Date/Time: 10/21/22 10:31 Surgeon: Dieter Harman MD Pre Op Diagnosis: left knee oa Patient Data Age: 67 Gender: M Height: 1.68 m Weight: 98.3 kg Last Vital Signs Temp 37.0 C 10/05/22 10:53 Pulse 75 10/05/22 10:53 Resp 18 10/05/22 10:53 BP 162/88 H 10/05/22 10:53 Pulse Ox 99 10/05/22 10:53 O2 Del Method Room Air 10/05/22 10:53 Allergies Allergy/AdvReac Type Severity Reaction Status Date / Time morphine AdvReac Unknown Nausea and Verified 10/21/22 10:27 Vomiting Home Medications Medication Instructions Recorded Confirmed Type garlic 2,000 mg capsule 2,000 mg PO DAILY 01/22/21 10/05/22 History multivitamin,[id number]-rspp-yiisrvsf 1 tablet PO DAILY 01/22/21 10/05/22 History omega-3 fatty acids 1,000 mg PO DAILY 01/22/21 10/05/22 History psyllium husk 0.4 gram capsule 0.4 g PO DAILY 01/22/21 10/05/22 History (Daily Fiber) tamsulosin 0.4 mg capsule 0.4 mg PO QAM 01/22/21 10/05/22 History diclofenac sodium 75 mg 75 mg PO BID 10/05/22 10/05/22 History tablet,delayed release losartan 100 1 tablet PO DAILY 10/05/22 10/05/22 History mg-hydrochlorothiazide 12.5 mg tablet oxycodone-acetaminophen 10 mg-325 0.5 tablet PO PRN PRN Pain 10/05/22 10/05/22 History mg tablet Patient hx anesthesia problems: none Family hx anesthesia problems: none Results Review: All pre-operative results and documents have been reviewed as part of the pre-operative evaluation. [facility] Past Medical History Medical History (Updated 10/21/22 @ 10:31 by Hieu Trivedi MD) Hypertension Obesity Surgical History Surgical History (Updated 10/21/22 @ 10:31 by Hieu Trivedi MD) History of total knee arthroplasty Family History Family History Father Heart disease CABG history then CVA, at 79 Mother COPD (chronic obstructive pulmonary disease) emphysema COPD Social History Social History Smoking packs per day: 3 Smoking cigarettes per day: 60.0 Years smoked: 25 Smoking pack-years: 75.00 Smoking status: Former smoker Tobacco type: cigarettes Smoking end date: 08/09/89 Additional smoking assessment comments: DENIES ANY FORM OF TOBACCO USE Alcohol intake: never Substance use: never Living arrangements: with family Gender identity (if verbalized by the patient): Male Spiritual care concerns: No Anes - Eval Final PreProcedure Day of Procedure 10/21/22 10:31 Patient weight: obese Heart: regular rate and rhythm Lungs: clear to auscultation Airway: Mallampati scale class II Neurological: alert and oriented Last oral intake: >/= 8 hours ASA classification: III Emergent: no Anesthetic plan: proceed Anesthesia type and monitoring: general ETT and standard monitoring Results Review: All pre-operative results and documents have been reviewed as part of the pre-operative evaluation. Informed Consent: The patient's anesthetic plan and its attendant risks and benefits were discussed with the patient/family/POA. Questions were solicited and answers provided to the satisfaction of the patient/family/POA.
[2022-10-21] MEDS: LACTATED RINGERS 1,000 ML 30 ML IV CONT ×2 (10:50→15:59)
[2022-10-21] MEDS: ACETAMINOPHEN 500 MG TABLET 1000 MG PO ×2 (10:52→20:08)
[2022-10-21] MEDS: TRANEXAMIC ACID 1,000MG/ISO100 1,000 MG/100 ML BAG 200 MG IVPB (10:52)
--- NOTE | 2022-10-21 12:04 | WPDHPUPDATE1 ---
History and Physical Update Update Date/Time: 10/21/22 12:04 History and Physical has been reviewed, including an updated exam of the patient. There are NO changes in the patient's condition. Risks, benefits, and alternatives have been discussed and questions answered. Patient agrees to proceed with procedure.
[2022-10-21] MEDS: ceFAZolin 2 GM/D5W 50 ML 2 GM/50 ML BAG IVPB (12:13)
[2022-10-21] MEDS: ceFAZolin SODIUM 1 GM VIAL 3 GM (13:13)
[2022-10-21] MEDS: GENTAMICIN BONE CEMENT REFOBACIN 1 EACH TOPICAL (13:14)
[2022-10-21] MEDS: TRANEXAMIC ACID 1,000 MG/10 ML AMPUL 1000 MG IV PUSH (15:05)
[2022-10-21] MEDS: KETOROLAC 15 MG/ML VIAL (*BKC) IV PUSH ×2 (15:06→20:34)
[2022-10-21] MEDS: ceFAZolin SODIUM 1 GM VIAL 2 GM IV PUSH (15:07)
--- NOTE | 2022-10-21 15:39 | W.PM.PROC2 ---
Procedure Note - Detailed Date of Procedure 10/21/22 Pre-op Diagnosis left knee oa Post-op Diagnosis Same Procedure Performed Left total knee arthroplasty Surgeon Dieter Harman MD Round Up Ring Hand Aura Anesthesia General Description of Procedure Patient was brought to the operating room and general anesthesia was administered. The left knee was prepped draped usual fashion. He received 2 g Ancef weight based vancomycin 1 g of tranexamic tranexamic acid preoperatively. Limb was exsanguinated tourniquet elevated to 250 mmHg. A 7 in longitudinal midline incision was used a vastus medialis splitting approach utilized. Infrapatellar and suprapatellar fat pads were excised a quadriceps synovectomy carried out. Seemed to be having bit of bleeding and his blood pressure was 180. We lowered the tourniquet re-exsanguinated tourniquet was elevated to 300 mmHg. The patella measured 23 mm in thickness was cut to 15.5 mm. It was scalloped and arthritic. Protector cap applied. Guide dwight was inserted down the femoral canal after aspiration of canal contents using the 5 degree valgus cutting bushing 9 mm of bone removed the distal femur. This removed equal amounts medially and laterally. Next the tibial plateau was cut. We attempted to make a skim cut off the low point of the posterior aspect of the medial tibial plateau where there was bony eburnation. The 1st cut was just barely superficial to the depth of the defect far posteriorly. Meniscal remnants were excised PCL recessed and the flexion gap was assessed and was too tight to allow the 8 mm spacer block on the medial side in flexion. I felt that another 1 or 2? of flexion would be last and we removed another mm of bone from the tibial plateau which got us just flush the defect posteriorly. This appeared to be perpendicular to the axis of the tibia on both planes. This accepted the 8 mm spacer medially 90? and 11 mm laterally. The femoral sizing guide was applied distal femur set at 3? of external rotation which matched Whitesides line. Posterior referencing pinholes were placed and the femur was cut with the 67.5 vanguard the AP cutting block. The 67.5 femur fit very nicely. We trialed and found that the medial side at 90? was tight lateral side open 2 mm. And extension medial side was very tight and the lateral side opened 3 mm. Peripheral osteophyte was minimally prominent around the margin of the tibia and was trimmed and smoothed. The tibia was sized to the 71 placed at proper rotation and punched we trialed with a 10 insert and soft tissue tension was performed laterally but medially it was a very tight 90? still tight in extension with no play medially and the lateral side tended to book open a mm and extension lacking a few degrees. We therefore elected to remove about a mm and half of bone from the medial tibial plateau by applying the tibial cutting block and application was done with about 1.5? of varus compared with the previous cut. This allowed removal about 2 mm of bone from the medial side and perhaps a 0.5 mm on the lateral side. Long alignment dwight suggested we were and about 1 degree of varus this point. The tibial punch was reinserted with the tower and on trialing now with a 10 insert there was at 90? about 1.5 mm medial opening 2 mm lateral opening anterior drawer stability seemed very appropriate gravity flexion 135 and the knee came out to full extension with a fairly positive bounce. In this position there is 1 and half medial opening and 3 lateral opening. Posterior femoral osteophyte was removed using the femoral trial as a template and we still had a fairly positive bounce. Central capsule release from the posterior femur was performed and with this the knee came out to full extension with 1 mm of medial opening 2 and half laterally. Negative bounce. Appropriate stability at 90?. We did trial with the 11 and there was no play to anterior drawer medially or laterally with t
[2022-10-21] MEDS: SCOPOLAMINE 1.5 MG PATCH TRANSDERM (16:21)
[2022-10-21] MEDS: ONDANSETRON INJ 4 MG/2 ML VIAL IV PUSH (20:06)
[2022-10-21] MEDS: oxyCODONE HCL (*CRX) 5 MG TAB IR PO ×2 (20:08→22:41)
[2022-10-21] MEDS: SENNA/DOCUSATE SODIUM TABLET 2 TAB PO (20:09)
[2022-10-21] MEDS: ceFAZolin 1 GM/NS 50 ML 1 GM/50 ML BAG IVPB (20:33)
[2022-10-21] MEDS: FAMOTIDINE 20 MG TABLET PO (20:34)
--- NOTE | 2022-10-21 22:16 | PM.IMCN ---
Assessment and Plan Assessment and plan (1) Status post total right knee replacement: Code(s): Z96.651 - Presence of right artificial knee joint Status: Acute Assessment and Plan: Postop care per orthopedic physician the patient has on TEDs and SCDs. He is also on Eliquis. Pain management per orthopedic physician. Patient is on Tylenol, Celebrex, fentanyl, Toradol and oxycodone. PT OT per orthopedic physician (2) Hypertension: Code(s): I10 - Essential (primary) hypertension Status: Acute Assessment and Plan: Patient's hydrochlorothiazide was resume as well as his losartan. (3) Conjunctivitis: Code(s): H10.9 - Unspecified conjunctivitis Status: Acute Assessment and Plan: I did start the patient on erythromycin and diclofenac to left eye. (4) BPH (benign prostatic hyperplasia): Code(s): N40.0 - Benign prostatic hyperplasia without lower urinary tract symptoms Status: Acute Assessment and Plan: Continue with Flomax Plan Thank you for allowing is to consult on this gentleman. We will be available to assist with the patient if any further assistance is required. HPI Data of Consult Consult date: 10/21/22 Requesting Physician: Dieter Harman MD Primary Care Provider: Kimberly Marmolejo MD Consult Narrative Narrative: Bandar Barron is a 67 year old male who presented today for left total knee arthroplasty. The patient underwent a right total knee arthroplasty January of 2021 and was very happy with results. The patient has tried anti-inflammatories for long time he has had cortisone injections. The patient continues to have symptoms on a daily basis in proceeded with a left total knee arthroplasty today. Please see Dr. Harman operative note. The patient is complaining of pain to his left eye that is gritty and his left eye is watering. The patient was started on antibiotics and anti-inflammatory eyedrops for the possibility of corneal abrasion. The hospitalist group was asked to consult on this pleasant gentleman on 10/21/2022. Review of Systems Review of Systems: All systems reviewed & are unremarkable except as noted in HPI and below Constitutional: Constitutional: Reports as per HPI and Reports no additional constitutional complaints Eyes: Eyes: Reports as per HPI and Reports no additional eye complaints ENT: Reports system reviewed and no additional complaints, except as documented and Reports Normal hearing present Cardiovascular: Cardiovascular: Reports no additional cardiovascular complaints Respiratory: Respiratory: Reports no additional respiratory complaints and Reports no additional respiratory complaints Gastrointestinal: Gastrointestinal: Reports as per HPI and Reports no additional gastrointestinal complaints Musculoskeletal: Musculoskeletal: Reports no additional musculoskeletal complaints Integumentary/Breasts: Skin/Breast: Reports system reviewed and no additional complaints, except as docu and Reports as per HPI Neurologic: Reports system reviewed and no additional complaints, except as documented, Reports as per HPI and Reports Normal hearing present Psychiatric: Psychiatric: Reports no additional psychiatric complaints and Reports as per HPI Endocrine: Endocrine: Reports no additional endocrine complaints Hematologic/Lymphatic: Hematologic/Lymphatic: Reports no additional hematologic/lymphatic complaints Allergic/Immunologic: Allergic/Immunologic: Reports no additional allergic/immunologic complaints [facility] Past Medical History Medical History (Updated 10/22/22 @ 00:01 by Georgiana Carmona NP) BPH (benign prostatic hyperplasia) Hypertension Obesity Surgical History Surgical History (Updated 10/21/22 @ 23:53 by Georgiana Carmona NP) H/O hand surgery H/O sinus surgery History of total knee arthroplasty Right total knee on 02/05/2021 Left total knee 10/21/2022 Family History Family History ([place]
[2022-10-22 01:41] VITALS: BP 140/70; PULSE 93; RESP 18; TEMP 36.8; O2SAT 99
[2022-10-22] MEDS: ACETAMINOPHEN 500 MG TABLET 1000 MG PO ×2 (02:04→06:20)
[2022-10-22] MEDS: KETOROLAC 15 MG/ML VIAL (*BKC) IV PUSH (02:05)
[2022-10-22] MEDS: oxyCODONE HCL (*CRX) 5 MG TAB IR PO ×3 (04:11→11:21)
[2022-10-22] MEDS: ceFAZolin 1 GM/NS 50 ML 1 GM/50 ML BAG IVPB ×2 (04:11→12:28)
[2022-10-22] MEDS: ERYTHROMYCIN OPHTH OINTMENT 1 GM TUBE 1 APPLIC LEFT EYE ×2 (04:14→09:16)
--- NOTE | 2022-10-22 04:40 | ADMGEN ---
This patient, Bandar Barron, was admitted to Medical Room 251-. Patient/family oriented to hospital policies and general routines including ID bracelet, bed and alarms, visiting hours, pain management, procedures, bathroom and other care routines, personal items, smoking policy, room service/diet, and visiting hours. Information on how to activate the Rapid Response Team has been discussed. Patient/Family are encouraged to report perceived risks to care and to ask questions if they do not understand what they are told or what they should do.
[2022-10-22 05:30] VITALS: BP 103/61; PULSE 96; RESP 18; TEMP 36.9; O2SAT 98
[2022-10-22 05:51] LABS: Basophils Percent Auto 0.2 % (0.2-1.2); Hematocrit 33.7 % (42.0-52.0); Hemoglobin 11.7 g/dL (14.0-18.0); Immature Granulocyte Absolute 0.07 K/mm3 (0.00-0.031); Immature Granulocyte Percent A 0.4 % (0-0.5); Lymphocytes Absolute Auto 0.96 K/mm3 (0.9-3.2); Lymphocytes Percent Auto 6.1 % (18.3-44.2); Mean Corpuscular HGB Conc 34.7 g/dl (32-36); Mean Corpuscular Hemoglobin 30.2 pg (26-34); Mean Corpuscular Volume 87.1 fl (80-100); Mean Platelet Volume 9.3 fl (7.4-10.4); Monocytes Absolute Auto 1.2 K/mm3 (0.1-0.6); Monocytes Percent Auto 7.8 % (2.6-8.5); Neutrophils Absolute Auto 13.4 K/mm3 (1.3-6.7); Neutrophils Percent Auto 85.5 % (45.5-73.1); Platelet Count Result 221 k/mm3 (150-375); Red Blood Count 3.87 M/mm3 (4.6-6.20); Red Cell Distribution Width 13.2 % (11.5-14.5); White Blood Count 15.6 K/mm3 (4.5-10.0)
[2022-10-22 06:24] LABS: Anion Gap 4 mmol/L (8-16); Blood Urea Nitrogen 19 mg/dL (9-20); Calcium 8.4 mg/dL (8.4-10.2); Carbon Dioxide 28 mmol/L (22-30); Chloride 106 mmol/L (98-107); Estimated CRCL calculation 74 ml/min; Estimated Glomerular Filt Rate > 60; Glucose 129 mg/dL (65-110); Potassium 4.2 mmol/L (3.4-5.0); Sodium 138 mmol/L (137-145)
--- NOTE | 2022-10-22 07:01 | PM.OP ---
Procedure Note - Brief Procedure Note - Brief Date of procedure: 10/22/22 Pre-op diagnosis: left knee oa Knee DJD Procedure performed: Left total knee arthroplasty Description of procedure: 67-year-old male who underwent left total knee arthroplasty on 10/21. I was involved procedure including positioning patient on the OR table. First assisting at time of surgery as well as wound closure. Assisted in getting patient to recovery. Total time spent was 3 hours Surgeon: BETTE Farah
--- NOTE | 2022-10-22 07:14 | PM.PNORT ---
Subjective Subjective Date/Time Seen: 10/22/22 07:14 Postop day 1 patient is alert. Afebrile vital signs are stable. Morning labs are noted. Patient has not been out of bed yet. He had up to the floor late. Therapy will work with him today a couple times. Overall pain is very well controlled. Dressing is dry and intact. Neurovascularly he is intact. Overall patient is doing well. Plan have him work with therapy and if he continues to do well he will be discharged home this afternoon after antibiotics have been completed Objective Data Vital Signs Vital Signs: Vital Signs - 24 hr 10/21/22 10:15 10/21/22 15:58 10/21/22 16:10 Temperature 36.1 C L 36.7 C Pulse Rate 74 63 75 Respiratory Rate 18 12 12 Blood Pressure 158/88 H 101/55 L 124/73 Pulse Oximetry 100 100 100 Oxygen Delivery Room Air Simple Face Mask Simple Face Mask Oxygen Flow Rate 6 6 10/21/22 16:25 10/21/22 16:40 10/21/22 16:55 Temperature Pulse Rate 77 79 72 Respiratory Rate 11 L 13 12 Blood Pressure 132/79 135/79 134/73 Pulse Oximetry 100 100 100 Oxygen Delivery Simple Face Mask Simple Face Mask Simple Face Mask Oxygen Flow Rate 6 6 6 10/21/22 17:10 10/21/22 17:25 10/21/22 17:40 Temperature Pulse Rate 80 79 90 Respiratory Rate 12 17 18 Blood Pressure 141/76 H 164/84 H 166/78 H Pulse Oximetry 98 96 97 Oxygen Delivery Room Air Room Air Room Air Oxygen Flow Rate 10/21/22 17:55 10/21/22 18:10 10/21/22 18:25 Temperature Pulse Rate 84 88 89 Respiratory Rate 16 16 16 Blood Pressure 172/92 H 162/84 H 156/93 H Pulse Oximetry 99 97 97 Oxygen Delivery Room Air Room Air Room Air Oxygen Flow Rate 10/21/22 18:39 10/21/22 20:00 10/21/22 20:49 Temperature 36.6 C 36.9 C Pulse Rate 87 97 98 Respiratory Rate 16 17 17 Blood Pressure 156/93 H 150/76 H 148/66 H Pulse Oximetry 97 98 99 Oxygen Delivery Room Air Oxygen Flow Rate 10/21/22 21:46 10/22/22 01:41 10/22/22 05:30 Temperature 36.8 C 36.8 C 36.9 C Pulse Rate 91 93 96 Respiratory Rate 18 18 18 Blood Pressure 155/65 H 140/70 103/61 Pulse Oximetry 99 99 98 Oxygen Delivery Oxygen Flow Rate Intake/Output Intake/Output: Intake & Output 10/19/22 10/20/22 10/21/22 10/22/22 23:59 23:59 23:59 23:59 Intake Total 1050 550 Output Total 825 Balance 1050 -275 Meds/Results Medications: Active Medications Generic Name Dose Route Start Last Admin Trade Name Freq PRN Reason Stop Dose Admin Acetaminophen 1,000 mg 10/21/22 19:00 10/22/22 06:20 Acetaminophen 500 Mg Tablet PO 1,000 mg Q6H VINOD Administration Apixaban 2.5 mg 10/22/22 09:00 Apixaban 2.5 Mg Tablet PO 11/02/22 21:01 Q12HR [facility] Celecoxib 200 mg 10/22/22 08:00 Celecoxib 200 Mg Capsule PO DAILY@0800 [facility] Cephalexin HCl 500 mg 10/22/22 12:00 Cephalexin 500 Mg Capsule PO Q6HR [facility] Diclofenac Sodium 1 drop 10/22/22 09:00 Diclofenac Sodium 0.1% Ophth Soln 2.5 Ml Bottle LEFT EYE QID VINOD Diphenhydramine HCl 25 mg 10/21/22 16:02 Diphenhydramine Hcl Inj 50 Mg/Ml Vial IV PUSH Q6H PRN Itching Erythromycin 1 applic 10/22/22 05:00 10/22/22 04:14 Erythromycin Ophth Ointment 1 Gm Tube LEFT EYE 1 applic Q4HWA [facility] Administration Famotidine 20 mg 10/21/22 21:00 10/21/22 20:34 Famotidine 20 Mg Tablet PO 20 mg Q12HR [facility] Administration Fentanyl Citrate 25 mcg 10/21/22 10:30 Fentanyl Citrate Inj (*Crx) 100 Mcg/2 Ml Vial IV PUSH Q2M PRN Pain Hydrochlorothiazide 12.5 mg 10/22/22 09:00 Hydrochlorothiazide 12.5 Mg Capsule PO DAILY VINOD Lactated Ringer's 1,000 mls @ 30 mls/hr 10/21/22 09:30 10/21/22 15:58 Lr - Lactated Ringers Iv IV CONT Infused .Q24H VINOD Infusion Lactated Ringer's 1,000 mls @ 30 mls/hr 10/21/22 10:30 10/21/22 18:35 Lr - Lactated Ringers Iv IV CONT Infused .Q24H VINOD Infusion Vancomycin HCl 1,000 mg in 250 mls @ 250 mls/hr 10/21/22 23:00 10/21
--- NOTE | 2022-10-22 07:19 | PM.DS ---
DS: Admitting Diagnosis Discharge Date 10/22 Admitting Diagnosis Left knee DJD DS: Discharge Diagnosis Discharge Diagnosis (1) Left knee DJD: Code(s): M17.12 - Unilateral primary osteoarthritis, left knee Status: Acute DS: Summary Hospital Course Hospital Course: 67-year-old male who underwent left total knee arthroplasty on 10/21. Underwent the procedure without complications. Postoperatively he has been afebrile vital signs are stable. He is weight-bearing as tolerated. His dressing is dry and intact. Pain is well controlled with scheduled Tylenol as well as oxycodone 5 mg. He is also on Celebrex 200 mg daily. He will be discharged home on 10/22. Patient is on Eliquis for DVT prophylaxis. He will also go home on a week of Keflex. He will also be given Senokot MiraLax for constipation. Patient was advised to keep leg elevated home with the foot higher than the heart prevent swelling in the leg and knee. He is to do his exercising of bending and straightening of the left knee every hour while awake. He is outpatient therapy starting next Wednesday. Patient did have a right total knee in the past and he has aware of the exercise and recovery. He was advised any questions or concerns he is to call the office otherwise we will see him at his appointed dates Time Spent with Patient Time attestation: Total time spent providing and/or coordinating discharge services: DS: Data Data Completed and Pending Labs on day of discharge: Labs from last 24 hours 10/22/22 10/22/22 10/21/22 05:19 05:19 10:42 WBC 15.6 H RBC 3.87 L Hgb 11.7 L D Hct 33.7 L MCV 87.1 MCH 30.2 MCHC 34.7 RDW 13.2 Plt Count 221 MPV 9.3 Immature Gran % (Auto) 0.4 Neut % (Auto) 85.5 H Lymph % (Auto) 6.1 L Sevier % (Auto) 7.8 Eos % (Auto) 0.0 Baso % (Auto) 0.2 Lymph # (Auto) 0.96 Sevier # (Auto) 1.2 H Eos # (Auto) 0.0 Baso # (Auto) 0.0 Abs Immat Gran (auto) 0.07 H Absolute Neuts (auto) 13.4 H Absolute Nucleated RBC 0.0 Nucleated RBC % 0.0 Sodium 138 Potassium 4.2 Chloride 106 Carbon Dioxide 28 Anion Gap 4 L BUN 19 Creatinine 0.90 Estim Creat Clear Calc 74 Estimated GFR > 60 Glucose 129 H Calcium 8.4 Blood Type A Positive Antibody Screen Negative Discharge Plan Discharge Patient Disposition: Home, Self-Care Discharge Instructions: ROS [facility] [place] [address] POST-OPERATIVE DISCHARGE INSTRUCTIONS TOTAL KNEE ARTHROPLASTY 1. When resting, lie on back with leg elevated above heart to minimize swelling. Significant swelling could indicate a blood clot and if this occurs call the office (or go to the ER) to have a venous ultrasound. 2. Do exercise 5 times a day. 3. Do not sit with leg down except for meals. 4. Wound Care: Nursing will give additional dressings at discharge. Patient to change dressing at home 1 week from surgery, then maintain until seen in office. 5. May shower with dressing in place. 6. Follow weight bearing status instructions. IMPORTANT: Remember not to sit in the chair for more than 30 minutes at a time. As a rule, during the first 14 days after surgery, only sit in the chair to work on the chair knee bending stretch exercise, for meals or for use of the restroom. Sitting in the chair promotes significant swelling in the knee and leg which will make the knee stiff and more painful and which simulates having a blood clot in the veins of the leg. If this type of significant diffuse swelling occurs, an ultrasound at the hospital will be necessary to rule out a blood clot. Be up walking around with the walker for a few minutes every hour while awake and then rest laying on your back on the couch or in bed with your leg elevated on cushions or pillows. Do not rest in the chair. Stand Willian
--- NOTE | 2022-10-22 07:51 | PM.IMPN ---
Progress Note: A&P Assessment and Plan (1) Status post total left knee replacement: Code(s): Z96.652 - Presence of left artificial knee joint Status: Acute Assessment and Plan: Underwent left knee arthroplasty Management per orthopedic surgery Continue low dose Eliquis Continue PT/OT (2) Corneal abrasion: Code(s): S05.00XA - Injury of conjunctiva and corneal abrasion without foreign body, unspecified eye, initial encounter Status: Acute Assessment and Plan: Findings most consistent with traumatic corneal abrasion. Patient reports that he scratched his eye while in postop recovery Continue with erythromycin ointment 4 times per day for 3-5 days Lubricating eyedrops for comfort Patient does not wear contact lenses Instructed to follow up with PCP if no improvement in 1-2 days (3) Hypertension: Code(s): I10 - Essential (primary) hypertension Status: Acute Assessment and Plan: Blood pressures reviewed and are stable Continue home losartan-HCTZ Monitor BP trends (4) BPH (benign prostatic hyperplasia): Code(s): N40.0 - Benign prostatic hyperplasia without lower urinary tract symptoms Status: Acute Assessment and Plan: Urine output is good. No urinary retention Continue home flomax Plan Patient educated regarding importance of maintaining bowel regimen postoperatively, especially in period of limited mobility and while taking narcotics Subjective Date/time seen: 10/22/22 07:51 Interval history: Date of service: 10/22/2022 Bandar Barron is a 67 year old male with a history of BPH, hypertension, and osteoarthritis s/p left total knee arthroplasty who is seen in follow up for medical management. The patient is feeling well today. States he tolerated surgery well. Endorses to out of 10 discomfort in his left knee today. He plans to return home following discharge where he lives with his who is able to provide assistance if needed. States he has about 4-5 steps to get up into his home. He has outpatient physical therapy arranged. He has been tolerating his diet. Denies nausea or vomiting. No abdominal pain. He is passing flatus but has not had a bowel movement. Voiding independently without any issues. Does complain of left eye irritation. States when he was in postop recovery he scratched his eye when rubbing it and now has burning pain and a gritty sensation in the right eye. Denies any drainage. Reports some mild light sensitivity due to irritation. Denies any visual changes. Review of Systems Review of Systems: All systems reviewed & are unremarkable except as noted in HPI and below Exam Narrative: General: Well-nourished, well-appearing 67-year-old male, sitting up in bed, comfortable, NARD Neuro: awake, alert and oriented x4, speech clear, no focal neuro deficits noted HEENMT: normocephalic, atraumatic, EOMI, sclerae anicteric, left eye with conjunctival injection, no evidence of foreign body or abrasion Respiratory: clear to auscultation bilaterally, nonlabored breathing Cardio: regular rate, regular rhythm with S1-S2 Abdomen: nondistended, normoactive bowel sounds, soft, nontender to palpation Extremities: left leg is elevated on pillow, left knee incision covered with dressing that is clean and dry, knee is mildly tender to palpation along medial aspect, BLE no edema, erythema, or tenderness to palpation, DP pulses 2+ bilaterally, able to wiggle toes bilaterally Skin: no rashes or lesions, warm and dry Psych: appropriate mood and affect, judgment and insight intact Objective Data Vital Signs Vital Signs: Vital Signs - 24 hr 10/21/22 10:15 10/21/22 15:58 10/21/22 16:10 Temperature 97.0 F L 98.1 F Pulse Rate 74 63 75 Respiratory Rate 18 12 12 Blood Pressure 158/88 H 101/55 L 124/73 Pulse Oximetry 100 100 100 Oxygen Delivery Room Air Simple Face Mask Simple Face Mask Oxygen Flow Rate
[2022-10-22] MEDS: TAMSULOSIN HCL 0.4 MG CAPSULE PO (09:14)
[2022-10-22] MEDS: hydroCHLOROthiazide 12.5 MG CAPSULE PO (09:14)
[2022-10-22] MEDS: CELECOXIB 200 MG CAPSULE PO (09:14)
[2022-10-22] MEDS: FAMOTIDINE 20 MG TABLET PO (09:15)
[2022-10-22] MEDS: APIXABAN 2.5 MG TABLET PO (09:16)
[2022-10-22] MEDS: SENNA/DOCUSATE SODIUM TABLET 2 TAB PO (09:22)
[2022-10-22] MEDS: ARTIFICIAL TEARS OPHTH SOLN 15 ML BOTTLE 1 DROP LEFT EYE (09:23)
[2022-10-22] MEDS: polyethylene glycoL 3350 17 GM POWD.PACK PO (09:23)
[2022-10-22 09:25] VITALS: BP 139/72; PULSE 89; RESP 18; O2SAT 98
[2022-10-22] MEDS: LOSARTAN POTASSIUM 100 MG TABLET PO (09:33)
--- NOTE | 2022-10-22 11:00 | WPDANESPN ---
Anes - Prog Note Post-Op Date/Time: 10/22/22 10:166 Cardiovascular status: normal Respiratory status: normal Airway patency: baseline Mental status: baseline Post-Op hydration status: normal Vital Signs: Last Vital Signs Temp 98.5 F 10/22/22 05:30 Pulse 89 10/22/22 09:25 Resp 18 10/22/22 09:25 BP 139/72 10/22/22 09:25 Pulse Ox 98 10/22/22 09:25 O2 Del Method Room Air 10/22/22 08:15 O2 Flow Rate 6 10/21/22 16:55 Pain Score (VAS): 2 I/O: Intake & Output 10/21/22 10/22/22 10/22/22 23:59 07:59 15:59 Intake Total 400 550 240 Output Total 825 Balance 400 -275 240 Laboratory Tests 10/22/22 05:19 10/22/22 05:19 10/21/22 10/22/22 10/22/22 10:42 05:19 05:19 WBC 15.6 H RBC 3.87 L Hgb 11.7 L D Hct 33.7 L MCV 87.1 MCH 30.2 MCHC 34.7 RDW 13.2 Plt Count 221 MPV 9.3 Immature Gran % (Auto) 0.4 Neut % (Auto) 85.5 H Lymph % (Auto) 6.1 L Cross % (Auto) 7.8 Eos % (Auto) 0.0 Baso % (Auto) 0.2 Lymph # (Auto) 0.96 Cross # (Auto) 1.2 H Eos # (Auto) 0.0 Baso # (Auto) 0.0 Abs Immat Gran (auto) 0.07 H Absolute Neuts (auto) 13.4 H Absolute Nucleated RBC 0.0 Nucleated RBC % 0.0 Sodium 138 Potassium 4.2 Chloride 106 Carbon Dioxide 28 Anion Gap 4 L BUN 19 Creatinine 0.90 Estim Creat Clear Calc 74 Estimated GFR > 60 Glucose 129 H Calcium 8.4 Blood Type A Positive Antibody Screen Negative Post-procedural complaints: other (left eye pain & irritation. using eye gtts & ointment for relief. redness & irritability continue.) Patient Feedback: Patient satisfied with anesthetic care.
== END 2022-10-22 13:30 | disposition home or self-care (01) ==
LOC: ANHSURGERY 10:09 → ANH2MED 10-22 06:57
PROVIDERS: Physician Assistant Surgical; PCP Internal Medicine; Visit Provider Orthopaedic Surgery
PROC: (CPT 27447; principal; 2022-10-21 12:00)
DX: M17.12 Unilateral primary osteoarthritis, left knee (principal); S05.00XA Injury of conjunctiva and corneal abrasion without foreign body, unspecified eye, initial encounter; X58.XXXA Exposure to other specified factors, initial encounter; I10 Essential (primary) hypertension; N40.0 Benign prostatic hyperplasia without lower urinary tract symptoms; E66.9 Obesity, unspecified; Z68.34 Body mass index [BMI] 34.0-34.9, adult; Z87.891 Personal history of nicotine dependence
CPT/HCPCS: 27447; 36415; 73560; 80048; 85025; 86850; 86900; 86901; 97110; 97161; 97165; 97530; 97535; A9270; C1713; C1776; J0171; J0330; J0690; J1170; J1885; J2250; J2405; J2795; J3010; J3370; J7120

== ENCOUNTER 2023-07-17 08:01 | Outpatient (CLI) | payer MEDICARE, OTHER, SELFPAY ==
--- NOTE | ~2023-07-17 | MR_ITS ---
MRI of the lumbar spine Clinical History: Back pain Technique: Axial T2-weighted images, and sagittal T1-weighted, T2-weighted, and and T2 fat-sat images were acquired. COMPARISON: 05/07/2021 Findings: No fracture identified. 3 mm retrolisthesis of L1 over L2 present. There are reactive marro w signal changes due to degenerative disc disease, but no suspicious bone marrow signal abnormality s een. At L1-L2, there is advanced degenerative disc narrowing. There is mild disc bulge with moderate to ad vanced facet arthropathy. No central canal stenosis. There is advanced right neural foraminal narrowi ng, and mild left neural foraminal narrowing. At L2-L3, there is advanced degenerative disc narrowing. There is disc bulge and severe facet arthrop athy, with left lateral recess stenosis. There is severe left neural foraminal compromise. Right neur al foramen preserved. No zach central canal stenosis. L3-L4, there is degenerative disc narrowing. There is mild disc bulge with moderate to advanced facet arthropathy. No central canal stenosis. There is moderate left neural foraminal narrowing. Right chip ral foramen preserved. At L4-L5, there is mild degenerative disc narrowing. There is disc bulge with severe facet arthropath y and right lateral recess stenosis. There is severe right neural foraminal narrowing, and moderate t o advanced left neural foraminal narrowing. There is minimal central canal stenosis. At L5-S1, there is minimal disc bulge. No central canal stenosis. There is mild bilateral neural fora beth narrowing. Paravertebral soft tissues are unremarkable. Impression: 3 mm retrolisthesis of L1 over L2. Moderate to advanced degenerative spondylosis overall, as detailed above. Reviewed, dictated and finalized at [facility] Impression: 3 mm retrolisthesis of L1 over L2. Moderate to advanced degenerative spondylosis overall, as detailed above.
== END 2023-07-17 08:02 | disposition home or self-care (01) ==
LOC: CHSIMG 08:02
PROVIDERS: PCP Neurological Surgery; Visit Provider Neurological Surgery
DX: M54.50 Low back pain, unspecified (principal); M43.16 Spondylolisthesis, lumbar region
CPT/HCPCS: 72148

== ENCOUNTER 2023-12-03 09:41 | Outpatient (CLI) | payer MEDICARE, OTHER, SELFPAY ==
--- NOTE | ~2023-12-03 | XR_ITS ---
[id number]_CR 12/03/2023 10:13 Indication: Numbness and tingling in the hand Procedure: 3 views cervical spine Comparison: No prior studies for comparison. Findings: Straightening of cervical lordosis. There is disc narrowing and endplate hypertrophy at C5- 6 and C6-7. No prevertebral soft tissue swelling. There is uncinate and facet hypertrophy at C5-6 and C6-7. There is carotid atherosclerosis. Vertebral body heights are maintained. No acute fracture or traumatic malalignment. Impression: 1: Moderate-severe cervical spondylosis. Reviewed, dictated and finalized at location B. Impression: 1: Moderate-severe cervical spondylosis.
== END 2023-12-03 09:42 | disposition home or self-care (01) ==
LOC: CHSIMG 09:44
PROVIDERS: PCP Internal Medicine; Visit Provider Internal Medicine
DX: M54.12 Radiculopathy, cervical region (principal); M43.02 Spondylolysis, cervical region
CPT/HCPCS: 72040

== ENCOUNTER 2023-12-09 10:31 | Outpatient (CLI) | payer MEDICARE, OTHER, SELFPAY ==
--- NOTE | ~2023-12-09 | MR_ITS ---
EXAMINATION: MR cervical spine wo con DATE: 12/09/2023 11:10 INDICATION: Cervical radiculopathy. Neck pain. TECHNIQUE: Magnetic resonance imaging (MRI) of the cervical spine was performed without intravenous c ontrast. Sequences included sagittal T2-weighted FSE, sagittal T2-weighted FS FSE, sagittal T1-weight ed FSE, axial MERGE, and axial T2-weighted FSE. COMPARISON: Cervical spine radiographs 12/03/2023 FINDINGS: There is kyphosis of cervical spine. There is 2 mm retrolisthesis of C5 on C6 and C6 on C7. Vertebral body heights are normal. There is severely decreased disc height at C5-C6 and C6-C7. The s ruben cord signal intensity is normal. The following disc levels are specifically discussed: C2-C3: The disc does not extend beyond the endplate margin. There is mild bilateral uncovertebral katelynn nt osteoarthritis. There is severe bilateral facet joint osteoarthritis. There is mild bilateral neur al foraminal stenosis. There is no central canal stenosis. C3-C4: The disc is bulging. There is mild bilateral uncovertebral joint osteoarthritis. There is lukas re bilateral facet joint osteoarthritis. There is mild bilateral neural foraminal stenosis. There is mild central canal stenosis. C4-C5: The disc is bulging. There is mild bilateral uncovertebral joint osteoarthritis. There is lukas re right and moderate left facet joint osteoarthritis. There is mild bilateral neural foraminal steno sis. There is mild central canal stenosis with ventral indentation of the spinal cord. C5-C6: The disc is bulging. There is severe bilateral uncovertebral joint osteoarthritis. There is se john bilateral facet joint osteoarthritis. There is moderate bilateral neural foraminal stenosis. The re is moderate central canal stenosis with ventral and dorsal indentation of the spinal cord. C6-C7: The disc is bulging. There is severe bilateral uncovertebral joint osteoarthritis. There is se john bilateral facet joint osteoarthritis. There is moderate bilateral neural foraminal stenosis. The re is mild central canal stenosis. C7-T1: The disc does not extend beyond the endplate margin. There is no uncovertebral joint osteoarth ritis. There is severe right and moderate left facet joint osteoarthritis. There is mild right neural foraminal stenosis. There is no central canal stenosis. IMPRESSION: 1. Severe cervical spondylosis. Reviewed, dictated and finalized at location E.
== END 2023-12-09 10:32 | disposition home or self-care (01) ==
LOC: CHSIMG 10:33
PROVIDERS: PCP Internal Medicine; Visit Provider Internal Medicine
DX: M43.02 Spondylolysis, cervical region (principal)
CPT/HCPCS: 72141

== ENCOUNTER 2024-10-24 15:24 | Outpatient (CLI) | payer MEDICARE, OTHER, SELFPAY ==
--- NOTE | ~2024-10-24 | CT_ITS ---
CLINICAL INDICATION: Right lower quadrant pain and constipation COMPARISON: None. TECHNIQUE: Multiple contiguous axial images of the abdomen and pelvis were performed following the ad ministration of with 100 mL Omnipaque-350 intravenous contrast The dose-length product (DLP) was 860.91 mGy-cm. Automated exposure control and iterative reconstruction technique were employed. FINDINGS/OBSERVATIONS: Visualized lower thorax: The bilateral lung bases are clear. The heart is of normal size, without pericardial effusion. Small hiatal hernia is present. Liver: The liver demonstrates homogeneous enhancement and is not enlarged measuring 16 cm in longitudinal di mension. Gallbladder and biliary system: The gallbladder is only minimally distended, and otherwise unremarkable. Pancreas: The pancreas enhances homogeneously without ductal dilatation. Spleen: The spleen enhances homogeneously and is not enlarged measuring 8 cm in longitudinal dimension. Kidneys: 3 mm nonobstructing calculi within the interpolar region of the left kidney with 2 additiona l nonobstructing calculi in the lower pole of the left kidney, all measuring approximately 3 mm in si ze. 6 mm nonobstructing calculus within the interpolar region of the right kidney with a 5 mm nonobstruct ing calculus in the lower pole of the right kidney. The remainder of the bilateral kidneys otherwise enhance symmetrically without hydronephrosis or xochitl tional renal calculi. Adrenal glands: Unremarkable. Gastrointestinal tract: Fecal stasis within the colon and rectum. Colonic diverticulosis without surrounding inflammatory change. Appendix: The air-filled appendix is of normal caliber (axial series, images 89 through 106). Vasculature: Calcified atherosclerotic disease. Lymph nodes: No pathologically enlarged or morphologically suspicious lymph nodes within the retroperitoneum or at the root of the mesentery. Pelvic structures:4 mm calculus dependently at the base of the bladder. The bladder is distended, and otherwise unremarkable. The prostate gland is significantly enlarged, containing bulky calcifications. Body wall and musculoskeletal: Small fat-containing umbilical hernia. Fat-containing left inguinal hernia. Degenerative disease within the lumbosacral spine with osteophyte formation, disc space narrowing, en dplate changes and vacuum phenomena. Subchondral cyst formation is also noted. IMPRESSION: Multiple nonobstructing stones within both the bilateral kidneys as well as within the base of the bl adder. Fecal stasis distending the rectum. Normal appendix. Colonic diverticulosis without inflammatory change. Reviewed, dictated and finalized at location A. IMPRESSION: Multiple nonobstructing stones within both the bilateral kidneys as well as wit hin the base of the bladder. Fecal stasis distending the rectum. Normal appendix. Colonic diverticulosis without inflammatory change.
[2024-10-24 15:47] LABS: Hematocrit 45.8 % (37.0-46.0); Hemoglobin 15.6 g/dL (12.4-15.3); Mean Corpuscular HGB Conc 34.1 g/dL (32-36); Mean Corpuscular Hemoglobin 30.1 pg (27.0-31.0); Mean Corpuscular Volume 88.4 fL (78.0-102.0); Mean Platelet Volume 9.1 fl (8.7-11.0); Platelet Count Result 237 K/mm3 (150-420); Red Blood Count 5.18 M/mm3 (4.70-6.10); Red Cell Distribution Width 12.9 % (11.6-14.4); White Blood Count 6.7 K/mm3 (4.8-10.8)
[2024-10-24 16:19] LABS: Alanine Aminotransferase 32 U/L (16-63); Albumin Level 4.1 g/dL (3.4-5.0); Alkaline Phosphatase 71 U/L (46-116); Amylase 70 U/L (25-115); Anion Gap 11 mmol/L (4-12); Aspartate Amino Transferase 17 U/L (15-37); Bilirubin,Total 1.1 mg/dL (0.00-1.00); Blood Urea Nitrogen 12 mg/dL (7-18); Calcium 10.1 mg/dL (8.5-10.1); Carbon Dioxide 29 mmol/L (21-32); Chloride 105 mmol/L (98-108); Estimated Glomerular Filt Rate > 60; Glucose 111 mg/dL (70-99); Lipase 20 U/L (16-77); Osmolality Calculated 300 mOsm/kg (285-295); Potassium 3.8 mmol/L (3.5-5.1); Prostate Specific Antigen 5.6 ng/mL (< OR = 4.0); Sodium 145 mmol/L (136-145); Total Protein 7.7 g/dL (6.4-8.2)
--- OUTSIDE RECORDS SUMMARY | 2024-10-24 17:23 | XMS_ITS | Data Portability ---
Author Organization [place] - [facility] [employer], Main Office Address [address] [place] [address] Care Team Providers Care Requirements Analyst Name Role Phone CRISPIN FRANCISCO Primary Care Provider CRISPIN FRANCISCO Referring Provider Assessment Encounter Date Assessment Date Assessment LastModified by Organization Details LastModified Time 11/02/2022 11/02/2022 HPI: Patient returns. He is 12 days out from left total knee arthroplasty. Doing well. Pain is well controlled. He has finished up his 1 week course of antibiotics. He remains on Eliquis. Also taking Celebrex 200 mg daily. He is still using Tylenol and oxycodone. He is doing therapy here at our office. Physical exam: Patient's incision is well healed. He is walking relatively well with a walker. Range of motion is from 0-120 degrees. There is no increased swelling in either lower extremity. Impression: Patient is doing very well 12 days out from left total knee arthroplasty. He will finish up his Eliquis and start the baby aspirin twice a day for the next month. he can increase the Celebrex to twice a day once he starts the aspirin. He can wean off the walker as his comfort allows. We will see him back at his 1 month follow-up for re-evaluation. Not available 11/02/2022 15:18:01 11/12/2022 11/12/2022 Patient has a little stitch reaction midway through the total knee incision no evidence of an abscess is noted right now. I spoke with Dr. Harman he recommended doxycycline 100 mg b.i.d. for 1 week he will see the patient back next week for his next recheck. If the incision starts to drain or if a pimple develops the patient is instructed to come back sooner. The patient voiced understanding agrees above plan will call for any further problems difficulties or questions. [email or web address] Not available 11/12/2022 14:57:20 11/18/2022 11/18/2022 HPI: Patient returns. He is 1 month out from left total knee arthroplasty. Continues very well. He did have 1 suture spit at the mid incision. He was on antibiotics and has 1 more pill and then will stop that. Otherwise he has been comfortable and has been very active. He is only using pain pills at night. He remains on the baby aspirin twice a day and also the Celebrex twice a day as well. Physical exam: Patient's incisions well healed. He has a small dry eschar mid incision from the suture spit. Range of motion is from 0-130 degrees. There is no increased swelling in either lower extremity. He walked in today with no limp and no assistance. Impression: Patient is doing well 1 month out left total knee arthroplasty. He will continue the baby aspirin and Celebrex twice a day. I did refill his pain pills today. We will see him back in 2 weeks with x-rays the knee at that time. Not available 11/18/2022 11:54:44 11/30/2022 11/30/2022 HPI: Patient returns. He is now 6 weeks out from left total knee arthroplasty. He is doing very well. He is having no real symptoms in the knee. He has been discharged from physical therapy. He is having no real symptoms during the day a little bit of soreness at night depending on how active he is during the day. Physical exam: 67-year-old male he is alert. He is walking very well without limp or assistance. Incision is well healed. Range of motion is from 0 to 135 . He has excellent stability in both flexion extension. No redness or warmth. No increased swelling in either lower extremity. Impression: Patient is doing well 6 weeks out left total knee arthroplasty. I will stop the baby aspirin at this point. He may resume his diclofenac at this point. He does use it for his hands in his back. Long-term risk of infection was discussed. At this point plan on seeing him back at his 1 year anniversary or sooner if he has problems. Patient was encouraged to continue with his daily exercises at least for the next 6 months he does not lose ground. Not available 11/30/2022 15:26:49 10/22/2023 10/22/2023 HPI: Patient returns. He is 1 year out from left total knee arthroplasty. He is doing very well is very happy with his results. He is having no complaints or problems with the knee. Physical exam: Patient is walking very well today. He has no effusion in the left knee. Range of motion is from 0-135 degrees. Excellent stability in both flexion and extension. No swelling lower extremities. Impression: Patient is 1 year out left total knee arthroplasty. He has had excellent results. He is happy with his results as well. This point he does not need to be seen for 5 years for routine x-ray surveillance or sooner if he has problems. Long-term risk of infection was discussed. 20 minutes was spent in treatment patient more than half of this in [id number] conversation Not available 10/22/2023 10:47:54 Plan of Treatment Reminders Order Date Submit Date Provider Last Modified By Organization Details Last Modified Time Details Appointments None recorded. Lab None recorded. Referral None recorded. Procedures None recorded. Surgeries None recorded. Imaging XR, knee 2023 024 [email or web address] [facility] [place], [address], [place], [address], 4 10:49:38 XR, knee 2022 023 [email or web address] [facility] [place], [address], [place], [address], 3 09:56:03 Medication Orders doxycycline hyclate 100 mg tablet 2022 023 [email or web address] [id number], [address], [place], [place], [id number], 3 15:00:04 Patient TargetsNo targets recorded. Patient InstructionsNo instructions recorded. Reason for Referral None Reported. Results Created Date Observation Date Name Description Value Unit Range Abnormal Flag Note LastModifiedBy Organization Detail LastModifiedTime 10/14/1910/05/2022 davion martinez am No observ ation record ed. [email or web address] Not Available 2022 11:21:09 10/22/19 23 10/21/2022 XR, knee No observ ation record ed. [address], [place], [address], 10/22/2022 13:03:18 12/01/19 XR, knee No observ ation record ed. [facility] [place] [address], [place], [address], 11/30/2022 15:25:42 10/22/19 XR, knee No observ ation record ed. [facility] [place] [address], [place], [address], 10/22/2023 10:47:01 Result Notes None recorded. Problems Name Problem SNOMED Code Status Onset Date Resolution Date Notes Provider Name and Address Organization Details Recorded Time Pain of left knee joint 3544976882305 07 Active 2021 Not Available [facility] 3 14:30:13 Osteoarthr itis of left knee joint 6430315082473 09 Active 2022 Not Available [facility] 3 14:30:13 Notes:Some problems listed i n Document: #[id number] could not be added to this patient's chart. Please review this document and add these problems to the patient's chart manually as needed. Problem Notes None recorded. Procedures Surgical History Date Name Laterality Status Provider Name and Address Organization Details Recorded Time Knee Replacement completed Not Available [facility] 10/07/2022 13:12:59 Imaging Results Imaging Date Name Status LastModified by Organization Details LastModified Time 10/05/2022 electrocardiogram completed [email or web address] Informa tion not available 10/13/2022 11:21:09 10/21/2022 XR, knee completed [address], [place], [address], 10/22/2022 13:03:18 11/30/2022 XR, knee completed [facility] [place] [address], [place], [address], 11/30/2022 15:25:42 10/22/2023 XR, knee completed [facility] [place] [address], [place], [address], 10/22/2023 10:47:01 Procedure Notes None recorded. Medical Equipment None Reported. Allergies Allergen ID Allergen Name Allergen Category Reaction Reaction Severity Criticality Documentation Date Start Date Code Code System Note Provider Name and Address Organization Details Recorded Time 34389 morphine medicatio n Not available Not available Not available 10/22/2023 7052 RxNorm ANNA [place] [facility] 10:29:10 Medications Name Sig Start Date Stop Date Status Note LastModified by Organization Details LastModified Time celecoxib 200 mg capsule TAKE 1 CAPSULE BY MOUTH DAILY AT 8 AM active Not Available Not Available No t Available hydrocodone 5 mg-acetamin ophen 325 mg tablet TAKE 1 TABLET BY MOUTH EVERY 4 HOURS NEEDED FOR PAIN 01/17 completed Not Available Not Available Not Available amlodipine 2.5 mg tablet active Not Available Not Available Not Available oxycodone-a cetaminophe n 10 mg-325 mg tablet TAKE 1/2 TO 1 TABLET BY MOUTH EVERY 6 TO 8 HOURS NEEDED FOR PAIN active Not Available Not Available No t Available tamsulosin 0.4 mg capsule TAKE 1 CAPSULE BY MOUTH DAILY active Not Available Not Available No t Available hydrocodone 7.5 mg-acetamin ophen 325 mg tablet TAKE 1 TABLET BY MOUTH EVERY 6 TO 8 HOURS NEEDED FOR PAIN 01/17 completed Not Available Not Available Not Available cephalexin 500 mg capsule TAKE 1 CAPSULE BY MOUTH EVERY 6 HOURS 11/30 completed Not Available Not Available Not Available erythromyci n 5 mg/gram (0.5 %) eye ointment APPLY 1 THIN LAYER IN LEFT EYE FOUR TIMES DAILY 11/18 completed Not Available Not Available Not Available diclofenac sodium 75 mg tablet,giselle yed release active Not Available Not Available Not Available mupirocin 2 % topical ointment Applied as directed in both nostrils twice daily for 5 days- starting 01-31-21 active Not Available Not Available No t Available polyethylen e glycol 3350 17 gram/dose oral powder 02/17 completed Not Available Not Available Not Available methylpredn isolone 4 mg tablets in a dose pack FPD 01/17 completed Not Available Not Available Not Available losartan 50 mg-hydrochl orothiazide 12.5 mg tablet TAKE 1 AND 1/2 TABLETS BY MOUTH DAILY 02/06 completed Not Available Not Available Not Available fluticasone propionate 50 mcg/actuati on nasal spray,suspe nsion SHAKE LIQUID AND USE 2 SPRAYS IN EACH NOSTRIL DAILY 02/06 completed Not Available Not Available Not Available doxycycline hyclate 100 mg tablet TAKE 1 TABLET BY MOUTH TWICE DAILY FOR 7 DAYS 11/30 completed Not Available Not Available Not Available amoxicillin 875 mg-potassiu m clavulanate 125 mg tablet TAKE 1 TABLET BY MOUTH EVERY 12 HOURS 10/21 completed Not Available Not Available Not Available Ventolin HFA 90 mcg/actuati on aerosol inhaler INHALE 2 PUFFS BY MOUTH EVERY 6 TO 8 HOURS 11/18 completed Not Available Not Available Not Available oxycodone 5 mg tablet TAKE 1 TABLET BY MOUTH EVERY 4 HOURS FOR PAIN 10/21 completed Not Available Not Available Not Available losartan 100 mg-hydrochl orothiazide 12.5 mg tablet TAKE 1 TABLET BY MOUTH EVERY DAY active Not Available Not Available No t Available Eliquis 2.5 mg tablet TAKE 1 TABLET BY MOUTH EVERY 12 HOURS 11/18 completed Not Available Not Available Not Available Vitals Date Recorded Body height Provider Name an d Address Organization Details Last Updated DateTime 11/02/2022 167.64 cm ANNA Walsh [facility] 11/02/2022 14:31:13 Date Recorded Body height Provider Name an d Address Organization Details Last Updated DateTime 11/18/2022 167.64 cm ANNA Walsh [facility] 11/18/2022 11:17:14 Date Recorded Body height Provider Name an d Address Organization Details Last Updated DateTime 11/30/2022 167.64 cm ANAN Walsh [facility] 11/30/2022 14:59:53 Date Recorded Body height Provider Name an d Address Organization Details Last Updated DateTime 10/22/2023 167.64 cm ANNA Walsh [place] [employer] [facility] 10/22/2023 10:29:00 Social History Question Answer Notes LastModified by Organizat ion Details LastModified Time Tobacco Smoking Status Never Smoker Not Available [facility] 10/07/2022 13:12:55 What Is Your Level Of Alcohol Consumption? Occasional [id number] Information not available 10/07/2022 Sex: Unknown Functional Status None recorded. Mental Status None recorded. Family History Relationship Description Onset Age of this Age Resolved Age Notes LastModified by Organization Details LastModified Time Father Heart disease [id number] [id number] Not available 10/07/2022 13:12:59 Father Family history of stroke [id number] Not available 10/07/2022 13:12:59 Father Hypertensive disorder [id number] Not available 10/07/2022 13:12:59 Medical History Condition Response BLINDNESS N KIDNEY STONES N MRSA N CARPAL TUNNEL SYNDROME N LUNG DISEASE/DISORDER N HISTORY OF DRUG ABUSE N COPD N RADIATION / CHEMOTHERAPY N SPORTS INJURY N ANKLE PAIN N BLOOD DISEASES N SCHIZOPHRENIA N SHINGLES N SHOULDER PAIN N DEPRESSION (INCLUDING POST ) N BOWEL PROBLEMS N STROKE/TIA N KNEE PAIN N ULCERS N BENIGN PROSTATIC HYPERPLASIA N OBESITY N GERD/NAUSEA N ANEURYSM N URINARY/BLADDER/KIDNEY PROBLEMS N CORONARY ARTERY DISEASE (CAD) N ADDICTION CONCERNS N USE OF BLOOD THINNERS N SKIN PROBLEMS N EMPHYSEMA N MUSCLE,JOINT OR BONE PROBLEMS N DVT N STOMACH ULCERS N BLOOD CLOTS N USE OF NSAIDS N CONCUSSION OR SPINAL TRAUMA N NEUROPATHY N AIDS/HIV N FRACTURES N HYPERTENSION N ELBOW PAIN N TOURETTE'S N Metal allergy N ANXIETY DISORDER N BLOOD TRANSFUSION N ANEMIA/BLOOD DISORDER N BIPOLAR DISORDER N BRONCHITIS N OSTEOARTHRITIS N TUBERCULOSIS N FOOT PROBLEM N HEART VALVE DISORDERS N ALLERGIES/HAYFEVER N SOFT TISSUE INJURY N INFECTIOUS DISEASE N HEART ARRHYTHMIA N INSOMNIA N HIGH CHOLESTEROL / HYPERLIPIDEMIA N RHEUMATOID ARTHRITIS N EDEMA N CHRONIC PAIN SYNDROME N CAROTID BLOCKAGE N BACK / NECK PROBLEMS N HAVE YOU BEEN HOSPITALIZED OR SEEN IN [facility] IN THE PAST YEAR ? N BURSITIS N HERNIATED DISC N DIALYSIS N FIBROMYALGIA N OSTEOPOROSIS N ARTHRITIS Y NO SIGNIFICANT PAST MEDICAL HISTORY N PERIPHERAL NEUROPATHY N DIABETES, TYPE N HEARTBURN / REFLUX N HEPATITIS / LIVER DISEASE N GOUT N ALZHEIMER'S DISEASE N SLEEP DISORDER N HERPES N HEADACHES/MIGRAINES N SEIZURES/EPILEPSY N VASCULAR DISEASE N Blood Disorder N HIP PAIN N DIZZINESS N HEAD TRAUMA OR INJURY N HEART DISEASE/HEART PROBLEMS N MULTIPLE SCLEROSIS N CANCER: SPECIFY N CARDIAC ARRHYTHMIA N ANESTHESIA COMPLICATIONS N ATRIAL FIBRILLATION N AUTOIMMUNE DISEASE N Past Encounters Encounter ID Performer Location Encounter Start Date Encounter Closed Date Diagnosis/Indication Diagnosis SNOMED-CT Code Diagnosis ICD10 Code Diagnosis Note [id number] [facility] [place] [address] [place] [address] 01/17/2021 00:00:00 01/17/2021 09:54:53 [id number] [facility] [place] [address] [place] [address] 02/17/2021 00:00:00 02/17/2021 16:41:35 [id number] [facility] [place] [address] [place] [address] 03/05/2021 00:00:00 03/10/2021 12:41:51 [id number] [facility] [place] [address] [place] [address] 2021 00:00:00 2021 10:35:06 [id number] [facility] [place] [address] [place] [address] 04/02/2021 00:00:00 04/02/2021 09:09:36 [id number] [facility] [place] [address] [place] [address] 04/30/2021 00:00:00 05/05/2021 11:41:51 [id number] [facility] [place] [address] [place] [address] 02/06/2022 00:00:00 02/06/2022 10:33:33 [id number] [facility] [place] [address] [place] [address] 07/24/2022 00:00:00 07/25/2022 19:20:02 [id number] BETTE Gonzalez [facility] [place] [address] [place] [address] 11/02/2022 14:23:03 11/02/2022 15:38:08 History of left total knee replacement 8262334287 640261 Z96.652 [id number] BETTE Miller [facility] [place] [address] [place] [address] 11/12/2022 14:56:28 11/12/2022 15:24:13 History of left total knee replacement 7997527457 791459 Z96.652 Osteoarthr itis of left knee joint 4828662774 75904 M17.12 Z96.652 [id number] BETTE Gonzalez [facility] [place] [address] [place] [address] 11/18/2022 11:10:04 11/18/2022 12:38:36 History of left total knee replacement 6460967803 138801 Z96.652 [id number] BETTE Gonzalez [facility] [place] [address] [place] [address] 11/30/2022 14:58:13 11/30/2022 15:47:17 History of left total knee replacement 7702736753 319735 Z96.188 [id number] BETTE Gonzalez [facility] [place] [address] [place] [address] 10/22/2023 09:59:18 10/22/2023 10:49:37 History of left total knee replacement 8522319493 065212 Z96.652 Health Concerns Section Related Observation LastModified by Organization Detai ls LastModified Time None Recorded Concern Status LastModified by Organization Details LastModified Time None Recorded Advance Directives Directive None Recorded Payers Encounter Date Sequence Insurance Name Policy Number Policy Andujar Covered Member ID Andujar Member ID Guarantor Name 11/02/2022 1 [place] Bandar Barron [id number] Bandar Anderson 11/02/2022 2 [employer] (MEDICARE SUPPLEMENT) Bandar Anderson [id number] [place] 11/12/2022 1 [place] Bandar K [place] [id number] Bandar Anderson 11/12/2022 2 [employer] (MEDICARE SUPPLEMENT) [place] [id number] [place] [place] 11/18/2022 1 [place] Bandar K Anderson [id number] [place] [place] 11/18/2022 2 [employer] (MEDICARE SUPPLEMENT) [place] [id number] Bandar Anderson 11/30/2022 1 [place] Band[place] [id number] Bandar Anderson 11/30/2022 2 [employer] (MEDICARE SUPPLEMENT) [place] [id number] [place] 10/22/2023 1 [place] Bandar K Anderson [id number] Bandar Anderson 10/22/2023 2 [employer] (MEDICARE SUPPLEMENT) [place] [id number] [place] Notes Date Note Type Note Provider Name and Address Organization Details Recorded Time 11/12/2022 text/html patient returns he was in physical therapy today the therapist noted that he had a little bit of erythema at 1 spot midway through the incision line of the total knee arthroplasty incision. I asked her to bring the patient up to take a look. He denies any fevers chills or night sweats no pain no constitutional symptoms he has a very small pinpoint area of erythema that is raised a little bit looks like an early stitch abscess type formation. Otherwise the incision looks good. There is no drainage he has not noted a pimple or bubble of fluid otherwise the incision is intact. He is doing well in therapy otherwise he is about 3 weeks status post total knee. BETTE Miller [address], [place], [address], [facility] - [facility] [employer] 11/12/2022 15:20:38
--- OUTSIDE RECORDS SUMMARY | 2024-10-24 17:24 | XMS_ITS | Clinical Summary ---
Author Organization [facility] Address [address] [place] [address] Care Team Providers Care Accounts Receivable Assistant Name Role Phone Kimberly Marmolejo MD Primary Care Provider [phone] Source Comments [facility],non-owned Affiliates and Associated Physician Practices is amultiple site organization consisting of ambulatory clinics and hospital sitesin [place], [place], [place] and [place]. This disclosure is being madepursuant to the Care Everywhere program and may not contain all information available regarding this patient. Last updated 18.[facility] Health Encounters Date Type Department Care Team Description 08/16/2024 Travel from Last 3 Months Social History Tobacco Use Types Packs/Day Years Used Date Smoking Tobacco: Never Assessed Sex and Gender Information Value Date Recorded Sex Assigned at Not on file Gender Identity Not on file Sexual Orientation Not on file Plan of Treatment Upcoming Encounters Date Type Department Care Team (Late st Contact Info) Description 03/01/2025 8:30 AM CDT Office Visit [facility] - Rheumatology [address] [place] [address], [place] [phone] Olayinka Mtz MD [address] [place] [address] [place] [address] Health Maintenance Due Date Last Done Comments COLOGUARD (AGES 45-75) - COL ON CA SCREENING 1953 COLON MONITORING 1953 COLONOSCOPY - COLON CA SCREENING 1953 CT COLONOGRAPHY - COLON CA SCREENING 1953 Colorectal Cancer Screening 1953 FIT - COLON CA SCREENING 1953 FLEX SIG - COLON CA SCREENING 1953 LIPID TESTING 1953 MEDICARE AWV 12 MONTHS 1953 HEPATITIS C SCREENING 03/15/1971 DTAP/TDAP/TD VACCINES (1 - Tdap) 1972 PNEUMOCOCCAL VACCINE 50+ (1 of 1 - PCV) 2003 ZOSTER VACCINE (1 of 2) 2003 COVID-19 VACCINE (1 - 2023-2 5 season) 2024 INFLUENZA VACCINE (#1) 2024 DEPRESSION SCREENING 08/09/2024 Respiratory Syncytial Virus (RSV) Vaccine Pt: or over 60 yrs (1 - 1-dose 75+ series) 2028 HEPATITIS B VACCINE Aged Out No longe r eligible based on patient's age to complete this topic HIB VACCINE Aged Out No longer eligi ble based on patient's age to complete this topic HPV VACCINE Aged Out No longer eligi ble based on patient's age to complete this topic MENINGOCOCCAL (Group B) VACC INE SHARED DECISION-MAKING Aged Out No longer eligibl e based on patient's age to complete this topic MENINGOCOCCAL GROUPS A/C/Y/W VACCINE Aged Out No longer eligible b ased on patient's age to complete this topic Care Teams Accounts Receivable Assistant Relationship Specialty Start Date End Date Kimberly Marmolejo MD [address] [place] [address] PCP - General Internal Medicine 08/16/24
== END 2024-10-24 15:25 | disposition home or self-care (01) ==
PROVIDERS: PCP Internal Medicine; Visit Provider Internal Medicine
DX: R10.9 Unspecified abdominal pain (principal); N40.0 Benign prostatic hyperplasia without lower urinary tract symptoms; R97.20 Elevated prostate specific antigen [PSA]
CPT/HCPCS: 36415; 74177; 80053; 82150; 83605; 83690; 84153; 85027; 87040; Q9967

== ENCOUNTER 2024-10-25 14:50 | Outpatient (CLI) | payer MEDICARE, SELFPAY ==
[2024-10-25 15:02] LABS: Hematocrit 44.5 % (37.0-46.0); Hemoglobin 15.3 g/dL (12.4-15.3); Mean Corpuscular HGB Conc 34.4 g/dL (32-36); Mean Corpuscular Hemoglobin 30.1 pg (27.0-31.0); Mean Corpuscular Volume 87.6 fL (78.0-102.0); Mean Platelet Volume 9.1 fl (8.7-11.0); Platelet Count Result 229 K/mm3 (150-420); Red Blood Count 5.08 M/mm3 (4.70-6.10); Red Cell Distribution Width 12.9 % (11.6-14.4); White Blood Count 7.2 K/mm3 (4.8-10.8)
--- OUTSIDE RECORDS SUMMARY | 2024-10-25 16:27 | XMS_ITS | Clinical Summary ---
Author Organization [facility] Address [address] [place] [address] Care Team Providers Care Chief Operating Officer Name Role Phone Kimberly Marmolejo MD Primary Care Provider [phone] Source Comments [facility],non-owned Affiliates and Associated Physician Practices is amultiple site organization consisting of ambulatory clinics and hospital sitesin [place], [place], [place] and [place]. This disclosure is being madepursuant to the Care Everywhere program and may not contain all information available regarding this patient. Last updated 18.[facility] Health Encounters Date Type Department Care [...] Office Visit [facility] - Rheumatology [address] [place] [address], [place] [id number] Olayinka Mtz MD [address] [place] [address] [place] [address] Health Maintenance Due Date Last Done Comments [...] age to complete this topic Care Teams Chief Operating Officer Relationship Specialty Start Date End Date Kimberly Marmolejo MD [address] [place] [address] PCP - General Internal Medicine 08/16/24
== END 2024-10-25 14:51 | disposition home or self-care (01) ==
PROVIDERS: PCP Internal Medicine; Visit Provider Internal Medicine
DX: R10.9 Unspecified abdominal pain (principal)
CPT/HCPCS: 36415; 85027

== ENCOUNTER 2024-11-07 13:10 | Outpatient (CLI) | payer MEDICARE, SELFPAY ==
[2024-11-07 13:21] LABS: Hematocrit 42.9 % (37.0-46.0); Hemoglobin 14.5 g/dL (12.4-15.3); Mean Corpuscular HGB Conc 33.8 g/dL (32-36); Mean Corpuscular Volume 88.8 fL (78.0-102.0); Mean Platelet Volume 8.7 fl (8.7-11.0); Platelet Count Result 239 K/mm3 (150-420); Red Blood Count 4.83 M/mm3 (4.70-6.10); Red Cell Distribution Width 13.3 % (11.6-14.4)
[2024-11-07 13:57] LABS: Anion Gap 8 mmol/L (4-12); Blood Urea Nitrogen 16 mg/dL (7-18); Carbon Dioxide 30 mmol/L (21-32); Chloride 104 mmol/L (98-108); Estimated Glomerular Filt Rate > 60; Glucose 99 mg/dL (70-99); Osmolality Calculated 295 mOsm/kg (285-295); Potassium 4.4 mmol/L (3.5-5.1); Prostate Specific Antigen 5.4 ng/mL (< OR = 4.0); Sodium 142 mmol/L (136-145)
--- OUTSIDE RECORDS SUMMARY | 2024-11-07 14:18 | XMS_ITS | Data Portability ---
Author Organization [place] [facility], Main Office Address [address] [place] [address] Care Team Providers Care Tank Car Cleaner Name Role Phone CRISPIN FRANCISCO Primary Care Provider [phone] CRISPIN FRANCISCO Referring Provider Assessment Encounter Date [...] patient more than half of this in [id number] conversation Not available 10/22/2023 10:47:54 Plan of Treatment Reminders Order Date Submit Date Provider Last Modified By Organization Details Last Modified Time Details Appointments None recorded. Lab None recorded. Referral None recorded. Procedures None recorded. Surgeries None recorded. Imaging XR, knee 2023 024 [email or web address] [facility] [place], [address], [place], [address], 4 10:49:38 XR, knee 2022 023 [email or web address] [facility] [place], [address], [place], [address], 3 09:56:03 Medication Orders doxycycline hyclate 100 mg tablet 2022 023 [email or web address] [id number], [address], [place], [place], [id number], 3 15:00:04 Patient TargetsNo targets recorded. Patient InstructionsNo instructions recorded. Reason for Referral None Reported. Results Created Date Observation Date Name Description Value Unit Range Abnormal Flag Note LastModifiedBy Organization Detail LastModifiedTime 10/14/1910/05/2022 davion martinez am No observ ation record ed. [email or web address] Not Available 2022 11:21:09 10/22/19 23 10/21/2022 XR, knee No observ ation record ed. [address], [place], [address], 10/22/2022 13:03:18 12/01/19 XR, knee No observ ation record ed. [facility] [place] [address], [place], [address], 11/30/2022 15:25:42 10/22/19 XR, knee No observ ation record ed. [facility] [place] [address], [place], [address], 10/22/2023 10:47:01 Result Notes None recorded. Problems Name Problem SNOMED Code Status Onset Date Resolution Date Notes Provider Name and Address Organization Details Recorded Time Pain of left knee joint 0708311154887 07 Active 2021 Not Available [facility] 3 14:30:13 Osteoarthr itis of left knee joint 5180033766664 09 Active 2022 Not Available [facility] 3 14:30:13 Notes:Some problems listed i n Document: #[id number] could not be added to this patient's chart. Please review this document and add these problems to the patient's chart manually as needed. Problem Notes None recorded. Procedures Surgical History Date Name Laterality Status Provider Name and Address Organization Details Recorded Time Knee Replacement completed Not Available [facility] 10/07/2022 13:12:59 Imaging Results Imaging Date Name Status LastModified by Organization Details LastModified Time 10/05/2022 electrocardiogram completed [email or web address] Informa tion not available 10/13/2022 11:21:09 10/21/2022 XR, knee completed [address], [place], [address], 10/22/2022 13:03:18 11/30/2022 XR, knee completed [facility] [place] [address], [place], [address], 11/30/2022 15:25:42 10/22/2023 XR, knee completed [facility] [place] [address], [place], [address], 10/22/2023 10:47:01 Procedure Notes None recorded. Medical Equipment None Reported. Allergies Allergen ID Allergen Name Allergen Category Reaction Reaction Severity Criticality Documentation Date Start Date Code Code System Note Provider Name and Address Organization Details Recorded Time 44906 morphine medicatio n Not available Not available Not available 10/22/2023 7052 RxNorm ANNA Walsh, [place] [facility] 10:29:10 Medications Name Sig Start Date Stop [...] Updated DateTime 11/02/2022 167.64 cm ANNA Walsh [facility] 11/02/2022 14:31:13 Date Recorded Body height Provider Name an d Address Organization Details Last Updated DateTime 11/18/2022 167.64 cm ANNA Walsh [facility] [employer] [facility] 11/18/2022 11:17:14 Date Recorded Body height Provider Name an d Address Organization Details Last Updated DateTime 11/30/2022 167.64 cm ANNA Walsh [facility] [employer] 11/30/2022 14:59:53 Date Recorded Body height Provider Name an d Address Organization Details Last Updated DateTime 10/22/2023 167.64 cm ANNA Walsh [place] [facility] 10/22/2023 10:29:00 Social History Question Answer Notes LastModified by Organizat ion Details LastModified Time Tobacco Smoking Status Never Smoker Not Available [facility] 10/07/2022 13:12:55 What Is Your Level Of Alcohol Consumption? Occasional [id number] Information not available 10/07/2022 Sex: Unknown Functional Status None recorded. Mental Status None recorded. Family History Relationship Description Onset Age of this Age Resolved Age Notes LastModified by Organization Details LastModified Time Father Heart disease [id number] Not available 10/07/2022 13:12:59 Father Family history of stroke [id number] Not available 10/07/2022 13:12:59 Father Hypertensive disorder [id number] Not available 10/07/2022 13:12:59 Medical History Condition Response BLINDNESS N KIDNEY STONES N MRSA N CARPAL TUNNEL SYNDROME N LUNG DISEASE/DISORDER N HISTORY OF DRUG ABUSE N RADIATION / CHEMOTHERAPY N COPD N SPORTS INJURY N ANKLE PAIN N BLOOD DISEASES N SCHIZOPHRENIA N SHINGLES N SHOULDER PAIN N DEPRESSION (INCLUDING POST ) N BOWEL PROBLEMS N STROKE/TIA N ULCERS N KNEE PAIN N BENIGN PROSTATIC HYPERPLASIA N OBESITY N [...] HAVE YOU BEEN HOSPITALIZED OR SEEN IN [facility] IN THE PAST YEAR ? N BURSITIS [...] SNOMED-CT Code Diagnosis ICD10 Code Diagnosis Note [id number] [facility] [place] [address] [place] [address] 01/17/2021 00:00:00 01/17/2021 09:54:53 [id number] [facility] [place] [address] [place] [address] 02/17/2021 00:00:00 02/17/2021 16:41:35 [id number] [facility] [place] [address] [place] [address] 03/05/2021 00:00:00 03/10/2021 12:41:51 [id number] [facility] [place] [address] [place] [address] 2021 00:00:00 2021 10:35:06 [id number] [facility] [place] [address] [place] [address] 04/02/2021 00:00:00 04/02/2021 09:09:36 [id number] [facility] [place] [address] [place] [address] 04/30/2021 00:00:00 05/05/2021 11:41:51 [id number] [facility] [place] [address] [place] [address] 02/06/2022 00:00:00 02/06/2022 10:33:33 [id number] [facility] [place] [address] [place] [address] 07/24/2022 00:00:00 07/25/2022 19:20:02 [id number] BETTE Gonzalez [facility] [place] [address] [place] [address] 11/02/2022 14:23:03 11/02/2022 15:38:08 History of left total knee replacement 2103701872 424679 Z96.652 [id number] BETTE Miller [facility] [place] [address] [place] [address] 11/12/2022 14:56:28 11/12/2022 15:24:13 History of left total knee replacement 1100793685 977411 Z96.652 Osteoarthr itis of left knee joint 5358768438 75900 M17.12 Z96.652 [id number] BETTE Gonzalez [facility] [place] [address] [place] [address] 11/18/2022 11:10:04 11/18/2022 12:38:36 History of left total knee replacement 4235561142 229751 Z96.652 [id number] BETTE Gonzalez [facility] [place] [address] [place] [address] 11/30/2022 14:58:13 11/30/2022 15:47:17 History of left total knee replacement 0653258171 436150 Z96.145 [id number] BETTE Gonzalez [facility] [place] [address] [place] [address] 10/22/2023 09:59:18 10/22/2023 10:49:37 History of left total knee replacement 4682452345 946630 Z96.652 Health Concerns Section Related Observation LastModified by Organization Detai ls LastModified Time None Recorded Concern Status LastModified by Organization Details LastModified Time None Recorded Advance Directives Directive None Recorded Payers Encounter Date Sequence Insurance Name Policy Number Policy Andujar Covered Member ID Andujar Member ID Guarantor Name 11/02/2022 1 [place] Bandar Barron [id number] Bandar Anderson 11/02/2022 2 [employer] (MEDICARE SUPPLEMENT) Bandar Anderson [id number] Bandar [place] 11/12/2022 1 [place] Bandar K Anderson [id number] Bandar [place] 11/12/2022 2 [employer] (MEDICARE SUPPLEMENT) Bandar [place] [id number] Bandar Anderson 11/18/2022 1 [place] Bandar K [place] [id number] Bandar [place] 11/18/2022 2 [employer] (MEDICARE SUPPLEMENT) Bandar Anderson [id number] Bandar [place] 11/30/2022 1 [place] Bandar [place] [id number] Bandar Anderson 11/30/2022 2 [employer] INS[employer]ANCE [employer] (MEDICARE SUPPLEMENT) Bandar [place] [id number] Bandar [place] 10/22/2023 1 [place] Bandar K [place] [id number] Bandar [place] 10/22/2023 2 [employer] (MEDICARE SUPPLEMENT) Bandar [place] [id number] Bandar [place] Notes Date Note Type Note Provider Name [...] status post total knee. BETTE Miller [address], [place], [address], [facility] 11/12/2022 15:20:38
--- OUTSIDE RECORDS SUMMARY | 2024-11-07 14:18 | XMS_ITS | Clinical Summary ---
Author Organization [facility] Address [address] [place] [address] Care Team Providers Care Car Checker Name Role Phone Kimberly Marmolejo MD Primary Care Provider [phone] Source Comments [facility],non-owned Affiliates and Associated Physician Practices is amultiple site organization consisting of ambulatory clinics and hospital sitesin [place], [place], [place] and [place]. This disclosure is being madepursuant to the Care Everywhere program and may not contain all information available regarding this patient. Last updated 18.[facility] Health Encounters Date Type Department Care Team [...] Office Visit [facility] - Rheumatology [address] [place] [address], [place] [phone] Olayinka Mtz MD [address] [place] [address] [place] [address] Health Maintenance Due Date Last Done Comments [...] age to complete this topic Care Teams Car Checker Relationship Specialty Start Date End Date Kimberly Marmolejo MD [address] [place] [address] PCP - General Internal Medicine 08/16/24
== END 2024-11-07 13:11 | disposition home or self-care (01) ==
LOC: CHSLAB 13:12
PROVIDERS: PCP Internal Medicine; Visit Provider Internal Medicine
DX: R97.20 Elevated prostate specific antigen [PSA] (principal)
CPT/HCPCS: 36415; 80048; 84153; 85027

== ENCOUNTER 2025-01-30 11:01 | Outpatient (CLI) | payer MEDICARE, OTHER, SELFPAY ==
--- NOTE | ~2025-01-30 | XR_ITS ---
EXAM/PROCEDURE: XR abdomen/kub 1V - 01/30/2025 11:35 CDT HISTORY: 69 years old Male with abdominal pain, weakness COMPARISON: None available. TECHNIQUE: AP view(s) of the abdomen. FINDINGS: The bowel gas pattern is normal. There is no evidence for obstruction. No free intraperitoneal air is identified on this supine radiograph. The visualized soft tissue shadows are unremarkable. No gross bony abnormalities are seen. Visualized portions of lung bases are clear. IMPRESSION: No acute process. Reviewed, dictated and finalized at location A. IMPRESSION: No acute process.
[2025-01-30 11:25] LABS: Basophils Absolute Auto 0.05 K/mm3 (0.00-0.10); Basophils Percent Auto 0.7 % (0.0-1.0); Eosinophils Absolute Auto 0.03 K/mm3 (0.02-0.50); Eosinophils Percent Auto 0.4 % (1.0-6.0); Hematocrit 44.5 % (37.0-46.0); Hemoglobin 15.2 g/dL (12.4-15.3); Immature Granulocyte Absolute 0.03 K/mm3 (0.00-0.00); Immature Granulocyte Percent A 0.4 % (0.0-0.0); Lymphocytes Percent Auto 20.4 % (18.0-42.0); Mean Corpuscular HGB Conc 34.2 g/dL (32-36); Mean Corpuscular Hemoglobin 30.3 pg (27.0-31.0); Mean Corpuscular Volume 88.8 fL (78.0-102.0); Mean Platelet Volume 8.9 fl (8.7-11.0); Monocytes Absolute Auto 0.48 K/mm3 (0.10-0.90); Neutrophils Absolute Auto 4.88 K/mm3 (1.70-7.20); Neutrophils Percent Auto 71.1 % (50.0-70.0); Platelet Count Result 234 K/mm3 (150-420); Red Blood Count 5.01 M/mm3 (4.70-6.10); Red Cell Distribution Width 12.8 % (11.6-14.4); White Blood Count 6.9 K/mm3 (4.8-10.8)
[2025-01-30 11:29] LABS: Add Urine Microscopic? NO; Appearance Urine Clear (Clear); Bilirubin Urine Negative (Negative); Blood Urine Negative (Negative); Color Urine Light Yellow (Yellow); Glucose Urine UA Negative (Negative); Ketones Urine Negative (Negative); Leukocyte Esterase Ur Negative (Negative); Nitrate Urine Negative (Negative); Protein Urine Negative (Negative); Specific Grav Ur <= 1.005 (1.010-1.020); Urobilinogen Urine 0.2 mg/dL (0.2-1.0); pH Urine 6.5 (5.0-8.0)
[2025-01-30 11:37] LABS: Alanine Aminotransferase 31 U/L (6-50); Albumin Level 4.4 g/dL (3.5-5.1); Alkaline Phosphatase 59 U/L (38-126); Amylase 77 U/L (30-110); Anion Gap 5 mmol/L (4-12); Aspartate Amino Transferase 33 U/L (17-59); Bilirubin,Total 0.9 mg/dL (0.2-1.3); Blood Urea Nitrogen 16 mg/dL (9-20); Carbon Dioxide 27 mmol/L (22-30); Chloride 107 mmol/L (98-107); Estimated Glomerular Filt Rate > 60; Glucose 102 mg/dL (65-110); Lipase 31 U/L (23-300); Osmolality Calculated 289 mOsm/kg (285-295); Sodium 139 mmol/L (137-145); Total Protein 7.2 g/dL (6.3-8.2)
== END 2025-01-30 11:02 | disposition home or self-care (01) ==
LOC: CHSLAB 11:03
PROVIDERS: PCP Internal Medicine; Visit Provider Nurse Practitioner Family
DX: R10.84 Generalized abdominal pain (principal); R53.1 Weakness
CPT/HCPCS: 36415; 74018; 80053; 81003; 82150; 83690; 85025

== ENCOUNTER 2025-05-24 10:33 | Outpatient (CLI) | payer MEDICARE, OTHER, SELFPAY ==
--- NOTE | ~2025-05-24 | XR_ITS ---
EXAMINATION: XR abdomen/kub 1V, 05/24/2025 10:55 CDT HISTORY: HX of bilateral kidney stones COMPARISON: No comparisons available. Technique: 3 view. Findings: Moderate fecal content limits evaluation, no dilated bowel loops. Bilateral renal calculi the largest right kidney lower pole 3 mm, largest left kidney midpole 3 mm. No acute osseous abnormality. Impression: 1. No acute abnormality. Reviewed, dictated and finalized at location P. Impression: 1. No acute abnormality.
== END 2025-05-24 10:34 | disposition home or self-care (01) ==
PROVIDERS: PCP Internal Medicine; Visit Provider Urology
DX: Z87.442 Personal history of urinary calculi (principal)
CPT/HCPCS: 74018